=== PATIENT | male | born 1950 | race Caucasian/White ===

== ENCOUNTER 2016-04-04 17:53 | Inpatient (IN) | payer MEDICARE, OTHER ==
[~2016-04-04] VITALS: Ht 170.2 cm; Wt 53.5 kg
[~2016-04-04 17:53] MED LIST: ASPI81TA7 PO; ATOR1TAB18 PO; BACI50OI TOP; CLOP75TA2 PO; DELT1TAB PO; FERR325T PO; FLUO40CA PO; GABA300C3 PO; LAMO150T PO; LEVA500T PO; MELA5TAB14 PO; METO-346 PO; MIRA33504 PO; NITR4TASL SL; OMEP20CA3 PO; OXYC-517 PO; RAMI1.25 PO; RAMI25CA PO; SENN8.6T10 PO; TIZA2CAP3 PO; VITA-130 PO; VITMTA PO; WELLTAB40 PO
[2016-04-04 18:40] LABS: BASO # 0.1 K/mm3 (0.0-0.2); BASO % 1.2 % (0.0-1.0); EOS # 0.3 K/mm3 (0.0-0.50); EOS % 3.3 % (0.0-3.0); LARGE UNSTAINED CELL # 0.3 K/mm3 (0.0-0.4); LARGE UNSTAINED CELL % 2.8 % (0.0-4.0); LYMPH # 2.8 K/mm3 (1.5-4.5); LYMPH % 24.9 % (24.0-44.0); MEAN CORPUSCULAR HEMOGLOBIN 30.1 pg (27.0-33.0); MEAN CORPUSCULAR HGB CONC 32.4 g/dl (32.0-36.5); MEAN CORPUSCULAR VOLUME 93.1 fl (80.0-96.0); MONO # 0.5 K/mm3 (0.0-0.8); MONO % 4.6 % (0.0-5.0); NEUTROPHILS # 6.4 K/mm3 (1.8-7.7); NEUTROPHILS % 63.3 % (36.0-66.0); PLATELET COUNT, AUTOMATED 379 k/mm3 (150-450); RED CELL DISTRIBUTION WIDTH 16.2 % (11.5-14.5); WHITE BLOOD COUNT 10.2 K/mm3 (4.0-10.0)
[2016-04-04 18:49] LABS: ALBUMIN 3.3 GM/DL (3.2-5.2); ALBUMIN/GLOBULIN RATIO 0.94 (1.00-1.93); ALKALINE PHOSPHATASE 124 U/L (45-117); ALT/SGPT 16 U/L (12-78); ANION GAP 9 MEQ/L (8-16); AST/SGOT 11 U/L (15-37); BILIRUBIN,DIRECT < 0.1 MG/DL (0.0-0.2); BILIRUBIN,TOTAL 0.3 MG/DL (0.2-1.0); BLOOD UREA NITROGEN 24 MG/DL (7-18); CALCIUM LEVEL 9.4 MG/DL (8.8-10.2); CARBON DIOXIDE LEVEL 27 MEQ/L (21-32); CHLORIDE LEVEL 103 MEQ/L (98-107); CREATININE FOR GFR 1.18 MG/DL (0.70-1.30); GLOMERULAR FILTRATION RATE > 60.0 (>49); GLUCOSE, FASTING 87 MG/DL (80-110); POTASSIUM SERUM 4.6 MEQ/L (3.5-5.1); SODIUM LEVEL 139 MEQ/L (136-145); TOTAL PROTEIN 6.8 GM/DL (6.4-8.2)
[2016-04-04] MEDS ORDERED: ONDANSETRON 4MG/2ML VIAL (J2405) IV PRN (19:30)
[2016-04-04] MEDS ORDERED: PERCOCET 5MG/325MG TAB As Ordered ONE (19:35)
[2016-04-04 19:55] LABS: FERRITIN 45 NG/ML (26-388); PERCENT SATURATION 33.8 % (19.7-37.4); TOTAL IRON BINDING CAPACITY 314 UG/DL (250-450)
[2016-04-04] MEDS ORDERED: CLOP75TA2 PO (20:00)
[2016-04-04] MEDS ORDERED: DONE5TAB17 PO (20:00)
[2016-04-04] MEDS ORDERED: SENN8.6T10 PO (20:00)
[2016-04-04] MEDS ORDERED: ALPR1TAB3 PO (20:00)
[2016-04-04] MEDS ORDERED: RAMI25CA PO (20:00)
[2016-04-04] MEDS ORDERED: PANTOPRAZOLE 40MG INJ (PROTONIX) (C9113) IV SCH (21:00)
[2016-04-04] MEDS ORDERED: IPRATROPIUM 0.5MG/ALBUTEROL 2.5MG INH SOL UD 3ML (DUONEB)(J7620) NEB PRN (21:00)
[2016-04-04 21:29] LABS: FOLATE 16.2 NG/ML (>5.4)
[2016-04-04 21:30] LABS: VITAMIN B12 LEVEL 434 PG/ML (247-911)
--- NOTE | 2016-04-04 21:53 | HPE ---
DATE OF ADMISSION: 04/04/2016 PRIMARY CARE PROVIDER: GHULAM Peters. CHIEF COMPLAINT: 1. Shortness of breath. 2. Weakness. 3. Tiredness. 4. Vomiting. PAST MEDICAL HISTORY: 1. Coronary artery disease status post stenting. 2. Chronic anemia. 3. Depression with history of suicidal ideas in the past. 4. History of cardiomyopathy with EF of 35% in the past but most recent echocardiogram shows normal ejection fraction. Has grade 2 diastolic dysfunction. 5. Dementia. 6. History of hypertension but right now hypotensive. 7. History of hematuria bladder diverticulum. 8. Difficulty in ambulation with unequal limbs. 9. Gastroesophageal reflux disease. 10. Chronic obstructive pulmonary disease and emphysema as per CT chest. Not on any medications. HISTORY OF PRESENT ILLNESS: This is a 66-year-old male who had a recent hospitalization in February and was discharged March 22. At that time he was hospitalized for community acquired pneumonia and chronic obstructive pulmonary disease exacerbation. During this hospitalization some of his blood pressure medications were adjusted and after returning home he went to his primary care and was found to have low blood pressure so his metoprolol was discontinued. Yesterday evening patient started vomiting, had several episodes of vomiting with some crampy abdominal pain which resolved by itself and he went to bed. However this morning again woke up and had two or three episodes of vomiting without any nausea. Subsequently he felt extremely shortness of breath while ambulating within the room. Patient felt that even after 5 feet of ambulation he could hardly take any breath and he was almost gaping so EMS was called for shortness of breath. On arrival EMS found the patient to be hypotensive with blood pressure of 86/57 and the patient was brought to the emergency room for evaluation in the emergency department (ED). On initial presentation blood pressure was 100/64, pulse was 109, respiratory rate 26, temperature 95.9, pulse oximetry 96% on room air. Patient was given one liter of IV fluid. After that he felt a little better. However patient still continued to complain of shortness of breath and extreme weakness so the hospitalist service was consulted for admission for evaluation. On my exam the patient complained of still feeling shortness of breath and extremely weak and tired. He also complained of sacral pain. He denied any nausea or vomiting. Denied any abdominal pain. Denied any chest pain. Denied any cough of phlegm. He did not have any fevers or chills at home. He does say that he has some intermittent hematuria but then it clears by itself. Patient does have an appointment to follow with Dr. Ashford in our urology clinic. The patient is admitted to the hospital for hypotension and dehydration. PAST SURGICAL HISTORY: 1. Pelvic fracture and surgery in August 2015. 2. Coronary artery stenting. ALLERGIES: No known allergies. SOCIAL HISTORY: Patient was a smoker one to two packs per day however quit smoking in October 2015. Used to drink alcohol, beer but has not drank for many years. Denies any recreational drug use. HOME MEDICATIONS: - aspirin 81 mg daily - clopidogrel 75 mg daily - atorvastatin 80 mg at bed time - ferrous sulfate 325 mg by mouth daily - vitamin B 500 mg by mouth daily - alprazolam 1 mg by mouth twice a day as needed anxiety - bupropion 300 mg by mouth daily - fluoxetine 40 mg by mouth daily - lamotrigine 300 mg at bed time - gabapentin 300 mg three times a day - melatonin 5 mg at bed time - donepezil 5 mg at bed time - multivitamin 1 tablet daily - nitroglycerin 0.4 mg sublingual as needed chest pain - omeprazole 20 mg daily - oxycodone 10 mg four times a day as needed pain - ramipril 2.5 mg by mouth daily - Senna two tablets at bed time REVIEW OF SYSTEMS: Patient denies any complaints other than those mentioned in history of present illness. PHYSICAL EXAMINATION: Vital signs: Blood pressure 117/67, pulse 90, respiratory rate 20, temperature 95.9, pulse oximetry 100% on room air. GENERAL: Patient awake, alert and oriented times three. Laying down in bed in no acute distress. HEENT: Normocephalic, atraumatic. Moist mucous membranes. Anicteric eyes. CHEST: Clear to auscultation. CARDIOVASCULAR: S1, S2, regular. No rub, murmur, or gallop. ABDOMEN: Soft, non-tender, bowel sounds present. There is hepatomegaly present. EXTREMITIES: No edema. BACK: There is Stage 1 to 2 sacral antecubital ulcer present. LABORATORY DATA: WBC 10.2, hemoglobin 9, platelet 379, sodium 139, potassium 4.6, chloride 103, bicarbonate 27, BUN 24, creatinine 1.1, iron 106, <<11:50>> saturation 33, <<11:52>> . Liver function tests are within normal limits. Lipase 58. IMAGING: Chest x-ray no acute abnormality detected. ASSESSMENT AND PLAN: This is a 66-year-old male admitted for hypotension and dehydration. PLAN: Hypotension possibly related to medications and poor oral intake along with several episodes of vomiting causing dehydration. We will hold ramipril at present. Patient responded to fluid with improvement in blood pressure. We will check orthostatics. Dehydration due to several episodes of vomiting. Unknown etiology of vomiting. We will treat for gastroesophageal reflux disease and gastritis. We will continue with pantoprazole and <<13:57>> . History of depression. Patient denies suicidal ideation at present. We will continue with home antidepressant medications. Coronary artery disease status post stenting in 2016 with history of low ejection fraction at that point of 35-40%. We will continue with aspirin, Plavix and atorvastatin however we will reduced atorvastatin dose from 80 to 40 mg a day in view of his very small stature and rescind history of transaminitis. History of cardiomyopathy which has now resolved as seen in recent echo done in February 2016 which shows an EF of 65-70% though has grade 1 diastolic systolic function. Chronic obstructive pulmonary disease. Not in any acute exacerbation at this point. We will place the patient on albuterol or on ipratropium as needed nebulizer. Gait instability. Patient had pelvic fracture in 2016 and after screw and external fixation his pelvis is tilted with one leg shorter than the other which causes difficulty with walking. Sacral decubitus ulcer. Still needs Optifoam dressing and frequent position change. For pain we will continue with oxycodone as needed. Deep vein thrombosis prophylaxis has been ordered. Chronic anemia. Patient did have low folic acid prior to admission. We will recheck iron and folic acid and vitamin B12 levels. Also check for fecal occult blood. We will continue with Vitamin C and iron at present. History of hematuria. Patient has been set up with urology appointment as an outpatient during the prior admission. We will get bladder scan.
--- NOTE | 2016-04-04 22:16 | EDDOCDS ---
Physician Documentation [facility] Name: Jorge Valle Age: 66 yrs Sex: Male : 1950 Arrival Date: 04/04/2016 Time: 17:53 Bed 7 Private MD: Disposition: 04/04 19:16 Critical Care: Critical care not applicable. pc Disposition: 04/04/16 19:18 Hospitalization ordered by Marcelina Bustillos for Inpatient Admission. Preliminary diagnosis are Dehydration, Weakness, Unspecified dementia, Adjustment disorder with depressed mood. - Bed requested for 4 [place]. - Status is Inpatient Admission. cf2 - Condition is Stable. - Problem is new. - Symptoms are unchanged. HPI: 18:26 This 66 yrs old Male presents to ER via Ambulance with complaints of Weakness.pc 18:26 The history is obtained from the patient, the patient's family/friend. A reliable pc history and/or examination was not able to be obtained, due to baseline dementia. He developed nausea and vomiting last evening that resolved after a few hours. He went ot bed and awoke feeling like he might get sick again. He sat up and felt lightheaded and too weak to stand. He vomited two more times and none since. He has felt weak all day and his daughter called for EMS tonight because he is too weak to stand. He denies any abdomina pain or nausea currently, denies any chest pain or headaches. He has been having low BPs since an admission to [facility] 3 weeks ago, for reported pneumonia with normal CXR and sputum. His records are not consistent, with his ramipril not listed as an admission drug but noted as doubled on discharge; his metoprolol dose was halved from 125. mg BID but is now not on any. 18:37 The patient has been recently seen by their primary care provider, yesterday. pc Historical: - Allergies: no known allergies; - Home Meds: 1. oxycodone 5 mg Oral tab 2 tabs every 6 hours (Last dose: 04/03/2016) 2. omeprazole 20 mg Oral cpDR 1 cap once daily (Last dose: 04/03/2016) 3. atorvastatin 80 mg oral tab 1 tab once daily (Last dose: 04/03/2016) 4. bupropion HCl 150 mg Oral TbER 1 tab once daily (Last dose: 04/03/2016) 5. lamotrigine 150 mg Oral tab 1 tab once daily (Last dose: Unknown) 6. ferrous sulfate 325 mg (65 mg iron) Oral cpER 325 mg daily (Last dose: 04/03/2016) 7. aspirin 81 mg Oral tab 1 tab once daily (Last dose: 04/03/2016) 8. gabapentin 300 mg Oral cap 1 cap 3 times per day (Last dose: 04/03/2016) 9. fluoxetine 40 mg Oral cap 1 cap once daily (Last dose: 04/03/2016) 10. ramipril 2.5 mg Oral cap 1 cap 2 times per day (Last dose: 04/03/2016) 11. Senna Lax 8.6 mg oral tab 2 tabs once daily (Last dose: 04/03/2016) 12. multivitamin Oral tab 1 tablet daily (Last dose: 04/03/2016) 13. melatonin 5 mg Oral cap 5 mg nightly (Last dose: 04/03/2016) 14. Nitrostat 0.4 mg SL subl 1 tab every 5 minutes as needed 15. Miralax 17 gram/dose Oral powd daily as needed - PMHx: Anxiety; CAD; Depression; GERD; High Cholesterol; pelvic fracture; Pneumonia; [place]; - PSHx: pelvic surgery; Cardiac stents; - The history from nurses notes was reviewed: and I agree with what is documented. - Social history: Smoking status: Patient uses tobacco products, light tobacco smoker. No barriers to communication noted, The patient speaks fluent Czech, Speaks appropriately for age. - : The pt / caregiver states he / she is not on anticoagulants. Home medication list is obtained from the patient, family members, a discharge med list, Differing med lists from pt, family members, discharge med list and admission med list. Provider aware. - Exposure Risk Screening:: None identified. - Immunization history:: All immunizations up-to-date. - Family history: Not pertinent. - Social history:: the patient smokes cigarettes the patient does not drink alcohol. ROS: 18:37 All systems are negative except as listed. pc Exam: 18:37 General Appearance: no acute distress, alert. pc 18:37 EENT: normal eye inspection, ears, nose and throat normal, mucous membranes dry. 18:37 Neck: The exam reveals no acute abnormalities. ROM is normal and painless. No nuchal rigidity is noted.. 18:37 Respiratory: no respiratory distress, Breath sounds: wheezing, scattered. 18:37 CVS: regular rhythm, normal S1 and S2, no murmurs, strong peripheral pulses, normal capillary refill, the patient is tachycardic, at 109 bpm. 18:37 Abdomen: soft, non-tender, no organomegaly, normal bowel sounds. 18:37 Back: normal inspection. 18:37 Skin: skin color is normal, warm, dry, the skin turgor is poor. 18:37 Extremities: The extremities have a grossly normal appearance, are non-tender, without acute ROM abnormalities. 18:37 Neuro: oriented x 3, cranial nerves normal as tested, no motor deficits, no sensory deficits. 18:37 Psych: mood is depressed, affect is flat. Vital Signs: 18:01 Pulse 109; Temp 95.9(O); ls3 18:14 BP 100 / 64; Resp 26; Pulse Ox 96% on R/A; Weight 52.62 kg / 116.01 lbs; Height 5 ft. 7 ls3 in. (170.18 cm); Pain 8/10; 18:38 BP 130 / 58 (auto/); ld5 18:38 Pulse 100 MON; Pulse Ox 100% ; ld5 19:23 BP 137 / 55 (auto/); cf2 19:23 Pulse 94 MON; Pulse Ox 98% ; cf2 19:53 Pulse 90 MON; Pulse Ox 98% ; cf2 19:53 BP 109 / 55 (auto/); cf2 20:23 Pulse 88 MON; Pulse Ox 100% ; cf2 20:23 BP 134 / 60 (auto/); cf2 20:38 BP 117 / 59 (auto/); cf2 20:38 Pulse 88 MON; Pulse Ox 100% ; cf2 21:21 Pulse 88 MON; cf2 21:23 BP 98 / 50 (auto/); cf2 21:38 BP 115 / 58 (auto/); cf2 21:43 Pulse 88 MON; Pulse Ox 97% ; cf2 18:14 Body Mass Index 18.17 (52.62 kg, 170.18 cm) ls3 MDM: 18:26 IV Saline Lock ordered. pc 18:27 CBC with Diff Ordered. EDMS 18:27 MED Profile Ordered. EDMS 18:27 Liver Profile Ordered. EDMS 18:28 Lipase Ordered. EDMS 18:37 Differential Diagnosis: weakness, nausea and vomiting resolved, hypotension resolved. pc Plan: labs. 18:55 CBC with Diff Reviewed. pc 18:55 MED Profile Reviewed. pc 18:55 Liver Profile Reviewed. pc 18:55 Lipase Reviewed. pc 18:57 NS 0.9% 1000 ml IV at bolus once ordered. pc 18:57 Rubber Flap Cutter/Pulse Ox/q 30 min VS ordered. pc 18:58 Chest, 1 View Ordered. EDMS 19:16 Data reviewed: old medical records, vital signs, nurses notes, lab test results. Test pc interpretation: LAB - all labs as ordered have been reviewed, interpreted and considered in the overall management of the clinical presentation;. The patient has been re-examined and re-evaluated. There is no appreciated change of the patient's symptoms at this time. Physician consultation: Dr. Marcelina Bustillos was contacted at 19:17, regarding admission, and will see patient in ED. Disposition: The historical points, examination findings, and any diagnostic results supporting the provided diagnosis, were discussed with the patient or legal guardian. The need for further work-up and/or treatment in the hospital was explained. 19:18 Financial registration complete. [email or web address] 19:19 BED REQUEST+ADM ordered. EDMS 19:20 [facility] Payment Agreement was scanned into redealize and attached to record. [email or web address] 19:34 CBC WITH DIFFERENTIAL Ordered. EDMS 19:34 BASIC METABOLIC PROFILE Ordered. EDMS 19:35 Admission / Observation Status ordered. EDMS 19:35 REGULAR DIET ordered. EDMS 19:44 oxyCODONE-acetaminophen 5 mg-325 mg 2 tabs PO once ordered. cf2 20:56 PHYSICAL THERAPY EVAL & TREAT ordered. EDMS 21:50 CARDIAC MARKER PANEL Ordered. EDMS Administered Medications: 19:44 Drug: NS 0.9% 1000 ml [sodium chloride 0.9 % intravenous solution] Route: IV; Rate: cf2 bolus; Site: left antecubital; 19:44 Drug: oxyCODONE-acetaminophen 2 tabs [oxycodone-acetaminophen 5 mg-325 mg tablet (2 cf2 tabs)] Route: PO; 20:49 Follow up: Response: No significant change. cf2 Signatures: Dispatcher [employer] EDMS Solo Carpio MD MD pc Lopresti, Mary-Elizabeth, Bending Roll Hand Unit ml3 Katelynn ShethRN RN ld5 Yue Larkin, Reg Reg [email or web address] Genie Chaparro,RN RN cf2 The chart was reviewed and I authenticate all verbal orders and agree with the evaluation and treatment provided.Corrections: (The following items were deleted from the chart) 18:40 18:26 He developed nausea and vomiting last evening that resolved after a few hours. He pc went ot bed and awoke feeling like he might get sick again. He sat up and felt lightheaded and too weak to stand. He vomited two more times and none since. He has felt weak all day and his daughter called for EMS tonight because he is too weak to stand. He has been having low BPs since an admission to [facility] 3 weeks ago, for reported pneumonia with normal CXR and sputum. His records are not consistent, with his ramipril not listed as an admission drug but noted as doubled on discharge; his metoprolol dose was halved from 25mg BID pc 18:59 18:51 Home Meds: oxycodone 5 mg Oral tab 2 tabs every 6 hours as needed (Last Dose: ld5 04/03/2016); ld5 19:44 19:37 VITAMIN B12 LEVEL ordered. EDMS EDMS 19:44 19:37 FOLATE ordered. EDMS EDMS 19:44 19:37 IRON (FE) ordered. EDMS EDMS 19:44 19:37 FERRITIN ordered. EDMS EDMS 19:44 19:38 TOTAL IRON BINDING CAPACIT ordered. EDMS EDMS 20:15 18:57 Orthostatic VS ordered. cf2 21:49 21:43 CARDIAC MARKER PANEL ordered. EDMS EDMS Attachments: 19:20 [facility] Payment Agreement [email or web address]
--- NOTE | 2016-04-04 22:16 | EDDOCDS ---
Nurse's Notes [facility] Name: Jorge Valle Age: 66 yrs Sex: Male : 1950 Arrival Date: 04/04/2016 Time: 17:53 Bed 7 Private MD: Diagnosis: Dehydration;Weakness;Unspecified dementia;Adjustment disorder with depressed mood Presentation: 04/04 18:00 Presenting complaint: EMS states: Initial call was for shortness of breath. Upon EMS ld5 arrival, BP was 86/57. Fluids given en route. Recent admission to [facility] for pneumonia. Pt had an episode of vomiting last night and again this morning. Denies nausea. The last date and time the patient was known to be well was was at 16:00 on April 03, 2016. No acute neurological deficit is noted. Transition of care: patient was not received from another setting of care. 18:00 Acuity: JOHAN Level 3 ld5 18:00 Method Of Arrival: Ambulance ld5 18:00 Pre-hospital glucose is not applicable to this patient. Suicide/Homicide risk ld5 assessment- the patient denies having any suicidal and/or homicidal ideations and does not present with any other emotional, behavioral or mental health complaints. 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 18:12 Adult Sepsis Screening: The patient does not have new or worsening altered mentation. ld5 Patient's respiratory rate is less than 22. Systolic blood pressure is less than or equal to 100 (1 point). Patient has a qSOFA score of 1- Negative Sepsis Screen. Triage Assessment: 18:19 The onset of the patients symptoms was more than three hours ago. General: Appears ill, ld5 Behavior is cooperative. Pain: Denies pain. Neurological: Level of Consciousness is awake, alert, obeys commands. Respiratory: Airway is patent Respiratory effort is even, labored, Reports shortness of breath at rest on exertion. GI: Reports vomiting, "out of nowhere", decreased oral intake Denies nausea. Musculoskeletal: Reports "I can't stay up straight", pt reports "I'm not dizzy or lightheaded". Historical: - Allergies: no known allergies; - Home Meds: 1. oxycodone 5 mg Oral tab 2 tabs every 6 hours (Last dose: 04/03/2016) 2. omeprazole 20 mg Oral cpDR 1 cap once daily (Last dose: 04/03/2016) 3. atorvastatin 80 mg oral tab 1 tab once daily (Last dose: 04/03/2016) 4. bupropion HCl 150 mg Oral TbER 1 tab once daily (Last dose: 04/03/2016) 5. lamotrigine 150 mg Oral tab 1 tab once daily (Last dose: Unknown) 6. ferrous sulfate 325 mg (65 mg iron) Oral cpER 325 mg daily (Last dose: 04/03/2016) 7. aspirin 81 mg Oral tab 1 tab once daily (Last dose: 04/03/2016) 8. gabapentin 300 mg Oral cap 1 cap 3 times per day (Last dose: 04/03/2016) 9. fluoxetine 40 mg Oral cap 1 cap once daily (Last dose: 04/03/2016) 10. ramipril 2.5 mg Oral cap 1 cap 2 times per day (Last dose: 04/03/2016) 11. Senna Lax 8.6 mg oral tab 2 tabs once daily (Last dose: 04/03/2016) 12. multivitamin Oral tab 1 tablet daily (Last dose: 04/03/2016) 13. melatonin 5 mg Oral cap 5 mg nightly (Last dose: 04/03/2016) 14. Nitrostat 0.4 mg SL subl 1 tab every 5 minutes as needed 15. Miralax 17 gram/dose Oral powd daily as needed - PMHx: Anxiety; CAD; Depression; GERD; High Cholesterol; pelvic fracture; Pneumonia; NV; - PSHx: pelvic surgery; Cardiac stents; - The history from nurses notes was reviewed: and I agree with what is documented. - Social history: Smoking status: Patient uses tobacco products, light tobacco smoker. No barriers to communication noted, The patient speaks fluent [place]er, Speaks appropriately for age. - : The pt / caregiver states he / she is not on anticoagulants. Home medication list is obtained from the patient, family members, a discharge med list, Differing med lists from pt, family members, discharge med list and admission med list. Provider aware. - Exposure Risk Screening:: None identified. - Immunization history:: All immunizations up-to-date. - Family history: Not pertinent. - Social history:: the patient smokes cigarettes the patient does not drink alcohol. Screenin:53 Screening information is obtained from the patient. Fall risk: At risk due to age, gait cf2 disturbance, immobility, prior history of falls. Assistance ADL's: Requires assistance with. Abuse/DV Screen: The patient / caregiver reports he/she is: not in a situation that causes fear, pain or injury. Nutritional screening: No deficits noted. Advance Directives: Further advance directive information is declined. home support is adequate. Assessment: 18:59 General: Daughter out to request pain medication for pt. Provider made aware. No new ld5 orders at this time. Will continue to monitor. 21:53 Reassessment: Patient appears in no apparent distress at this time. Patient denies pain cf2 at this time. Patient states feeling better. Adult Sepsis Screening: The patient does not have new or worsening altered mentation. Patient's respiratory rate is less than 22. Systolic blood pressure is greater than 100. Patient has a qSOFA score of 0- Negative Sepsis Screen. Vital Signs: 18:01 Pulse 109; Temp 95.9(O); ls3 18:14 BP 100 / 64; Resp 26; Pulse Ox 96% on R/A; Weight 52.62 kg; Height 5 ft. 7 in. (170.18 ls3 cm); Pain 8/10; 18:38 BP 130 / 58 (auto/); ld5 18:38 Pulse 100 MON; Pulse Ox 100% ; ld5 19:23 BP 137 / 55 (auto/); cf2 19:23 Pulse 94 MON; Pulse Ox 98% ; cf2 19:53 Pulse 90 MON; Pulse Ox 98% ; cf2 19:53 BP 109 / 55 (auto/); cf2 20:23 Pulse 88 MON; Pulse Ox 100% ; cf2 20:23 BP 134 / 60 (auto/); cf2 20:38 BP 117 / 59 (auto/); cf2 20:38 Pulse 88 MON; Pulse Ox 100% ; cf2 21:21 Pulse 88 MON; cf2 21:23 BP 98 / 50 (auto/); cf2 21:38 BP 115 / 58 (auto/); cf2 21:43 Pulse 88 MON; Pulse Ox 97% ; cf2 18:14 Body Mass Index 18.17 (52.62 kg, 170.18 cm) ls3 Vitals: 21:55 Glucose Measurement intriage. Log In Time N/A - ambulance arrival. cf2 ED Course: 17:54 Patient visited by Sana Sue, Hydrology Technician. deg 17:54 Patient moved to Waiting deg 17:54 Patient moved to 7 deg 18:05 Solo Carpio MD is Attending Physician. pc 18:06 Triage Initiated ld5 18:15 Patient visited by Alize Heath PCA. ls3 18:22 Patient visited by Solo Carpio MD. pc 18:27 Maintain field IV. Good blood return noted. Site clean & dry. Gauge & site: 20g right ld5 AC. 19:00 Patient visited by Katelynn Sheth RN. ld5 19:02 Patient visited by Alex Olivarez PCA. kb5 19:08 Genie Chaparro,MARGARITA is Primary Nurse. cf2 19:08 Patient visited by Genie Chaparro RN. cf2 19:17 Marcelina Bustillos is Hospitalizing Provider. pc 19:20 [facility] Payment Agreement was scanned into [employer] and attached to record. ks16 19:27 Patient name changed from Jorge\\S\\\\S\\Beadling\\S\\ to Jorge\\S\\ \\S\\Beadling. EDMS 20:47 Patient visited by Genie Chaparro RN. cf2 20:49 Patient visited by Genie Chaparro,MARGARITA. cf2 21:53 Patient visited by Genie Chaparro,MARGARITA. cf2 21:53 The patient / caregiver is instructed regarding the plan of care and ED course. Patient cf2 has correct armband on for positive identification. Placed in gown. Bed in low position. Call light in reach. Side rails up X 1. Side rails up X2. awake overnight monitor on. Pulse ox on. NIBP on. Property :Personal belongings accompany Pt. Door closed. Noise minimized. Visitors limited. Lights dimmed. Moved to private room. Head of bed elevated. 21:53 No procedures done that require assistance. cf2 21:56 Patient visited by Alex Olivarez PCA. kb5 Administered Medications: 19:44 Drug: NS 0.9% 1000 ml [sodium chloride 0.9 % intravenous solution] Route: IV; Rate: cf2 bolus; Site: left antecubital; 19:44 Drug: oxyCODONE-acetaminophen 2 tabs [oxycodone-acetaminophen 5 mg-325 mg tablet (2 cf2 tabs)] Route: PO; 20:49 Follow up: Response: No significant change. cf2 Order Results: Lab Order: CBC with Diff; SPEC'M 04/04/16 18:06 Test: WHITE BLOOD COUNT; Value: 10.2; Range: 4.0-10.0; Abnormal: Above high normal; Units: K/mm3; Status: F Test: RED BLOOD COUNT; Value: 2.99; Range: 4.30-6.10; Abnormal: Below low normal; Units: M/mm3; Status: F Test: HEMOGLOBIN; Value: 9.0; Range: 14.0-18.0; Abnormal: Below low normal; Units: g/dl; Status: F Test: HEMATOCRIT; Value: 27.8; Range: 42.0-52.0; Abnormal: Below low normal; Units: %; Status: F Test: MEAN CORPUSCULAR VOLUME; Value: 93.1; Range: 80.0-96.0; Units: fl; Status: F Test: MEAN CORPUSCULAR HEMOGLOBIN; Value: 30.1; Range: 27.0-33.0; Units: pg; Status: F Test: MEAN CORPUSCULAR HGB CONC; Value: 32.4; Range: 32.0-36.5; Units: g/dl; Status: F Test: RED CELL DISTRIBUTION WIDTH; Value: 16.2; Range: 11.5-14.5; Abnormal: Above high normal; Units: %; Status: F Test: PLATELET COUNT, AUTOMATED; Value: 379; Range: 150-450; Units: k/mm3; Status: F Test: NEUTROPHILS %; Value: 63.3; Range: 36.0-66.0; Units: %; Status: F Test: LYMPH %; Value: 24.9; Range: 24.0-44.0; Units: %; Status: F Test: MONO %; Value: 4.6; Range: 0.0-5.0; Units: %; Status: F Test: EOS %; Value: 3.3; Range: 0.0-3.0; Abnormal: Above high normal; Units: %; Status: F Test: BASO %; Value: 1.2; Range: 0.0-1.0; Abnormal: Above high normal; Units: %; Status: F Test: LARGE UNSTAINED CELL %; Value: 2.8; Range: 0.0-4.0; Units: %; Status: F Test: NEUTROPHILS #; Value: 6.4; Range: 1.8-7.7; Units: K/mm3; Status: F Test: LYMPH #; Value: 2.8; Range: 1.5-4.5; Units: K/mm3; Status: F Test: MONO #; Value: 0.5; Range: 0.0-0.8; Units: K/mm3; Status: F Test: EOS #; Value: 0.3; Range: 0.0-0.50; Units: K/mm3; Status: F Test: BASO #; Value: 0.1; Range: 0.0-0.2; Units: K/mm3; Status: F Test: LARGE UNSTAINED CELL #; Value: 0.3; Range: 0.0-0.4; Units: K/mm3; Status: F Lab Order: MED Profile; [facility] 04/04/16 18:06 Test: GLUCOSE, FASTING; Value: 87; Range: 80-110; Units: MG/DL; Status: F Test: BLOOD UREA NITROGEN; Value: 24; Range: 7-18; Abnormal: Above high normal; Units: MG/DL; Status: F Test: CREATININE FOR GFR; Value: 1.18; Range: 0.70-1.30; Units: MG/DL; Status: F Test: GLOMERULAR FILTRATION RATE; Value: > 60.0; Range: >49; Status: F Test: SODIUM LEVEL; Value: 139; Range: 136-145; Units: MEQ/L; Status: F Test: POTASSIUM SERUM; Value: 4.6; Range: 3.5-5.1; Units: MEQ/L; Status: F Test: CHLORIDE LEVEL; Value: 103; Range: 98-107; Units: MEQ/L; Status: F Test: CARBON DIOXIDE LEVEL; Value: 27; Range: 21-32; Units: MEQ/L; Status: F Test: ANION GAP; Value: 9; Range: 8-16; Units: MEQ/L; Status: F Test: CALCIUM LEVEL; Value: 9.4; Range: 8.8-10.2; Units: MG/DL; Status: F Test Note: ; Units are mL/min/1.73 m2 Chronic Kidney Disease Staging per NKF: Stage I & II GFR >=60 Normal to Mildly Decreased Stage III GFR 30-59 Moderately Decreased Stage IV GFR 15-29 Severely Decreased Stage V GFR <15 Very Little GFR Left ESRD GFR <15 on POWER TRANSMISSION ENGINEER Test: CPK CREATINE PHOSPHOKINASE; Range: 39-308; Units: U/L; Status: I Test: CK-MB VALUE MASS; Range: 0.0-3.6; Units: NG/ML; Status: I Test: MB/CK RELATIVE INDEX; Range: < OR =4; Status: I Test: TROPONIN I; Range: < 0.10; Units: NG/ML; Status: I Lab Order: Liver Profile; 04/04/16 18:06 Test: AST/SGOT; Value: 11; Range: 15-37; Abnormal: Below low normal; Units: U/L; Status: F Test: ALT/SGPT; Value: 16; Range: 12-78; Units: U/L; Status: F Test: ALKALINE PHOSPHATASE; Value: 124; Range: 45-117; Abnormal: Above high normal; Units: U/L; Status: F Test: BILIRUBIN,TOTAL; Value: 0.3; Range: 0.2-1.0; Units: MG/DL; Status: F Test: BILIRUBIN,DIRECT; Value: < 0.1; Range: 0.0-0.2; Units: MG/DL; Status: F Test: TOTAL PROTEIN; Value: 6.8; Range: 6.4-8.2; Units: GM/DL; Status: F Test: ALBUMIN; Value: 3.3; Range: 3.2-5.2; Units: GM/DL; Status: F Test: ALBUMIN/GLOBULIN RATIO; Value: 0.94; Range: 1.00-1.93; Abnormal: Below low normal; Status: F Lab Order: Lipase; 04/04/16 18:06 Test: LIPASE; Value: 58; Range: 73-393; Abnormal: Below low normal; Units: U/L; Status: F Lab Order: TOTAL IRON BINDING CAPACIT; 04/04/16 18:06 Test: IRON (FE); Value: 106; Range: 65-175; Units: UG/DL; Status: F Test: TOTAL IRON BINDING CAPACITY; Value: 314; Range: 250-450; Units: UG/DL; Status: F Test: PERCENT SATURATION; Value: 33.8; Range: 19.7-37.4; Units: %; Status: F Lab Order: VITAMIN B12 LEVEL; SPEC'M 04/04/16 18:06 Test: VITAMIN B12 LEVEL; Value: 434; Range: 247-911; Units: PG/ML; Status: F Test Note: ; VITAMIN B12 NORMAL RANGE NORMAL 247 - 911 PG/ML INDETERMINATE 211 - 246 PG/ML DEFICIENT LESS THAN 211 PG/ML Lab Order: FOLATE; SPEC'M 04/04/16 18:06 Test: FOLATE; Value: 16.2; Range: >5.4; Units: NG/ML; Status: F Test Note: ; FOLATE NORMAL RANGE NORMAL GREATER THAN 5.4 NG/ML INDETERMINATE 3.4-5.4 NG/ML DEFICIENT LESS THAN 3.4 NG/ML Lab Order: FERRITIN; SPEC'M 04/04/16 18:06 Test: FERRITIN; Value: 45; Range: 26-388; Units: NG/ML; Status: F Outcome: 19:18 Decision to Hospitalize by Provider. pc 21:53 Discharge Assessment: Patient awake, alert and oriented x 3. No cognitive and/or cf2 functional deficits noted. Patient verbalized understanding of disposition instructions. Patient awake and alert. Oriented to person, place and time. patient administered narcotics - yes. Patient was admitted to the hospital or transferred to another facility. The following High Risk Discharge criteria are identified: None. Condition: stable. No special radiology studies were completed. 22:15 Patient left the ED. cf2 Signatures: Dispatcher [employer] EDMS Solo Carpio MD MD pc Murray, Denise, Hydrology Technician Unit deg Alex Olivarez, ROAD SUPERVISOR OF ENGINES ROAD SUPERVISOR OF ENGINES kb5 Katelynn Sheth,RN RN ld5 Alize Heath, ROAD SUPERVISOR OF ENGINES ROAD SUPERVISOR OF ENGINES ls3 Yue Larkin, Reg Reg ks16 Genie Chaparro RN RN cf2 Corrections: (The following items were deleted from the chart) 18:59 18:51 Home Meds: oxycodone 5 mg Oral tab 2 tabs every 6 hours as needed (Last Dose: ld5 04/03/2016); ld5 MTDD
[2016-04-04] MEDS: DONEPEZIL 5 MG TAB PO SCH (22:47)
[2016-04-04] MEDS: GABAPENTIN 300 MG CAP PO SCH (22:47)
[2016-04-04] MEDS: FLUoxetine 20 MG CAP PO SCH (22:47)
[2016-04-04] MEDS: ATORVASTATIN 20 MG TAB PO SCH (22:47)
[2016-04-04] MEDS: SENOKOT S TAB PO SCH (22:47)
[2016-04-04] MEDS: NS 1,000 ML IV SCH (22:48)
[2016-04-05] VITALS: BP_SYST 107; BP_SYST 114; BP_SYST 116; BP_DIAS 55; BP_DIAS 56; BP_DIAS 63
[2016-04-05] MEDS: oxyCODONE 5MG TAB PO PRN ×4 (01:10→21:04)
[2016-04-05 06:00] VITALS: BP 104/55
[2016-04-05 07:43] LABS: BASO % 0.2 % (0.0-1.0); EOS # 0.3 K/mm3 (0.0-0.50); EOS % 4.9 % (0.0-3.0); LARGE UNSTAINED CELL # 0.2 K/mm3 (0.0-0.4); LARGE UNSTAINED CELL % 3.4 % (0.0-4.0); LYMPH # 1.8 K/mm3 (1.5-4.5); LYMPH % 29.2 % (24.0-44.0); MEAN CORPUSCULAR HEMOGLOBIN 31.4 pg (27.0-33.0); MEAN CORPUSCULAR HGB CONC 32.9 g/dl (32.0-36.5); MEAN CORPUSCULAR VOLUME 95.5 fl (80.0-96.0); MONO # 0.3 K/mm3 (0.0-0.8); MONO % 4.9 % (0.0-5.0); NEUTROPHILS # 3.6 K/mm3 (1.8-7.7); NEUTROPHILS % 57.4 % (36.0-66.0); RED CELL DISTRIBUTION WIDTH 15.8 % (11.5-14.5); WHITE BLOOD COUNT 6.2 K/mm3 (4.0-10.0)
[2016-04-05 07:44] LABS: ANION GAP 7 MEQ/L (8-16); BLOOD UREA NITROGEN 26 MG/DL (7-18); CALCIUM LEVEL 8.1 MG/DL (8.8-10.2); CARBON DIOXIDE LEVEL 25 MEQ/L (21-32); CHLORIDE LEVEL 111 MEQ/L (98-107); CREATININE FOR GFR 1.03 MG/DL (0.70-1.30); GLOMERULAR FILTRATION RATE > 60.0 (>49); GLUCOSE, FASTING 82 MG/DL (80-110); POTASSIUM SERUM 4.7 MEQ/L (3.5-5.1); SODIUM LEVEL 143 MEQ/L (136-145)
--- NOTE | 2016-04-05 07:49 | REP ---
Clinical: Chest pain and weakness . Comparison: 03/18/2016 . Findings: The mediastinum and cardiac silhouette are stable and within normal limits for portable technique. The lung collazo demonstrate diffuse chronic changes without acute consolidation, effusion, or pneumothorax. Skeletal structures are intact. Impression: No acute cardiopulmonary process Signed by José Luis Mccrary MD 04/05/2016 07:39 A
[2016-04-05 07:53] LABS: PLATELET COUNT, AUTOMATED 238 k/mm3 (150-450)
[2016-04-05] MEDS: FERROUS SULFATE 325MG TAB PO SCH (08:19)
[2016-04-05] MEDS: GABAPENTIN 300 MG CAP PO SCH ×3 (08:19→21:03)
[2016-04-05] MEDS: buPROPion **XL** TABLET 150MG (WELLBUTRIN XL) PO SCH (08:19)
[2016-04-05] MEDS: MULTIVITAMINS/MINERALS THERAP 1 TAB PO SCH (08:19)
[2016-04-05] MEDS: SENOKOT S TAB PO SCH ×2 (08:19→21:03)
[2016-04-05] MEDS: ASCORBIC ACID 500 MG TAB PO SCH (08:19)
[2016-04-05] MEDS ORDERED: PANTOPRAZOLE 40MG INJ (PROTONIX) (C9113) IV SCH (09:00)
[2016-04-05] MEDS ORDERED: CLOPIDOGREL 75 MG TAB PO SCH (09:00)
[2016-04-05] MEDS ORDERED: ASPIRIN 81 MG ENTERIC TAB PO SCH (09:00)
[2016-04-05] MEDS ORDERED: ENOXAPARIN 40 MG/0.4 ML SYRINGE (J1650) SC SCH (09:00)
--- NOTE | 2016-04-05 09:21 | IPNPDOC ---
Assessment/Plan Date Seen The patient was seen on 04/05/16. Problems Problems: (1) Anemia Status: Acute Discussed With: Patient Problem Specific Plan: Consult Specialist, Monitor Clinically, Repeat Labs Problem Text: history of chronic anemia complicated with acute likely blood loss anemia serial h/h transfuse 2prbc gi consult - likely egd/colonoscopy iv protonix npo iv fluids (2) CAD (coronary artery disease) Status: Chronic Discussed With: Patient Problem Text: s/p pci hold plavix secondary to gi bleed (3) Depression Status: Chronic Discussed With: Patient Problem Specific Plan: Monitor Clinically Problem Text: continue prozac, wellbutrin (4) CHF (congestive heart failure) Status: Chronic Discussed With: Patient Problem Specific Plan: Monitor Clinically Problem Text: diastolic dysfunction (5) HTN (hypertension) Status: Chronic Discussed With: Patient Problem Text: has been hypotensive, hold home meds for now (6) GERD (gastroesophageal reflux disease) Status: Chronic Discussed With: Patient Problem Specific Plan: Monitor Clinically Problem Text: as per above iv ppi (7) Dyslipidemia Status: Chronic Plan / VTE VTE Prophylaxis Ordered?: Yes (mechanical) Plan IVF: Initiate Diet: Make NPO Medications: Change to IV Diagnostics: Repeat Labs in AM, Other Diagnostics Plan Text transfer to icu, protonix drip, transfuse prbc, npo, gi consultation, likely egd /colonoscopy Subjective Review of Systems CC/HPI The patient is a 66-year-old male admitted with a reason for visit of Dehydration, Nausea And Vomiting. General: Denies: Chills, Fatigue, Malaise, Night Sweats, Normal Appetite, Other Symptoms, ROS Unobtainable Constitutional: Denies: Chills, Fatigue, Fever, Lethargy, Malaise, Night Sweats , Other, Weakness, Weight Loss Eyes: Denies: Conjunctivae inflammation, Eyelid inflammation, Other, Pain, Redness, Vision change ENT: Denies: Dysphagia, Ear Pain, Epistaxis, Head Aches, Other Symptoms, Post Nasal Drip, Sinus Congestion, Sore Throat Skin: Denies: Breakdown, Bruising, Dry, Itching, Jaundice, Lesions, Nail Changes, Other, Rash Pulmonary: Denies: Cough, Dyspnea, Other Symptoms, Pleuritic Chest Pain Cardiovascular: Denies: Chest Pain, Edema, Lt Headedness, Orthopnea, Other Symptoms, Palpitations, Paroxysmal Noc. Dyspnea Gastrointestinal: Denies: Abdominal Pain, Constipation, Diarrhea, Hematochezia , Melena, Nausea, Other Symptoms, Vomiting Objective Physical Examination General Exam: Positive: Alert, Cooperative, No Acute Distress Eye Exam: Positive: PERRLA ENT Exam: Positive: Atraumatic Neck Exam: Positive: Supple Chest Exam: Positive: Clear to auscultation, Normal air movement Heart Exam: Positive: Rate Normal, Regular Rhythm Abdomen Exam: Positive: Normal bowel sounds, Soft, Negative: Tenderness Psych Exam: Positive: Oriented x 3 Vital Signs/I&O Vital Signs Date Time Temp Pulse Resp B/P Pulse Ox O2 Delivery O2 Flow Rate FiO2 04/05/16 08:21 20 04/05/16 06:00 97.6 80 104/55 97 Room Air I&O- Last 24 Hours up to 6 AM 04/05/16 05:59 Intake Total 75 ml Output Total 200 ml Balance -125 ml Laboratory Data Labs 24H Laboratory Tests 2 04/04/16 18:06: Aspartate Amino Transf (AST/SGOT) 11L, Alanine Aminotransferase (ALT/SGPT) 16, Alkaline Phosphatase 124H, Total Bilirubin 0.3, Direct Bilirubin < 0.1, Albumin 3.3, Albumin/Globulin Ratio 0.94L, Anion Gap 9, White Blood Count 10.2H, Red Blood Count 2.99L, Hemoglobin 9.0L, Hematocrit 27.8L, Mean Corpuscular Volume 93.1, Mean Corpuscular Hemoglobin 30.1, Mean Corpuscular Hemoglobin Concent 32.4 , Red Cell Distribution Width 16.2H, Platelet Count 379, Neutrophils (%) (Auto) 63.3, Lymphocytes (%) (Auto) 24.9, Monocytes (%) (Auto) 4.6, Eosinophils (%) ( Auto) 3.3H, Basophils (%) (Auto) 1.2H, Neutrophils # (Auto) 6.4, Lymphocytes # ( Auto) 2.8, Monocytes # (Auto) 0.5, Eosinophils # (Auto) 0.3, Basophils # (Auto) 0.1, Calcium Level 9.4, Creatine Kinase MB 1.0, Creatine Kinase MB Relative Index 3.84, Ferritin 45, Folate 16.2, Glomerular Filtration Rate > 60.0, Iron Level 106, Large Unclassified Cells # 0.3, Large Unclassified Cells % 2.8, Lipase 58L, Total Creatine Kinase 26L, Total Iron Binding Capacity 314, Total Protein 6.8, Transferrin % Saturation 33.8, Troponin I < 0.02, Vitamin B12 Level 434 04/05/16 07:11: Anion Gap 7L, White Blood Count 6.2, Red Blood Count 2.06L, Hemoglobin 6.5#*L, Hematocrit 19.6L, Mean Corpuscular Volume 95.5, Mean Corpuscular Hemoglobin 31.4 , Mean Corpuscular Hemoglobin Concent 32.9, Red Cell Distribution Width 15.8H, Platelet Count 238#, Neutrophils (%) (Auto) 57.4, Lymphocytes (%) (Auto) 29.2, Monocytes (%) (Auto) 4.9, Eosinophils (%) (Auto) 4.9H, Basophils (%) (Auto) 0.2 , Neutrophils # (Auto) 3.6, Lymphocytes # (Auto) 1.8, Monocytes # (Auto) 0.3, Eosinophils # (Auto) 0.3, Basophils # (Auto) 0.0, Calcium Level 8.1L, Glomerular Filtration Rate > 60.0, Large Unclassified Cells # 0.2, Large Unclassified Cells % 3.4, Blood Urea Nitrogen 26H, Creatinine 1.03, Sodium Level 143, Potassium Level 4.7, Chloride Level 111H, Carbon Dioxide Level 25 CBC/BMP Laboratory Tests 04/04/16 18:06 Red Blood Count 2.99 L, Mean Corpuscular Volume 93.1, Mean Corpuscular Hemoglobin 30.1, Mean Corpuscular Hemoglobin Concent 32.4, Red Cell Distribution Width 16.2 H, Neutrophils (%) (Auto) 63.3, Lymphocytes (%) (Auto) 24.9, Monocytes (%) (Auto) 4.6, Eosinophils (%) (Auto) 3.3 H, Basophils (%) ( Auto) 1.2 H, Neutrophils # (Auto) 6.4, Lymphocytes # (Auto) 2.8, Monocytes # ( Auto) 0.5, Eosinophils # (Auto) 0.3, Basophils # (Auto) 0.1 04/05/16 07:11 Red Blood Count 2.06 L, Mean Corpuscular Volume 95.5, Mean Corpuscular Hemoglobin 31.4, Mean Corpuscular Hemoglobin Concent 32.9, Red Cell Distribution Width 15.8 H, Neutrophils (%) (Auto) 57.4, Lymphocytes (%) (Auto) 29.2, Monocytes (%) (Auto) 4.9, Eosinophils (%) (Auto) 4.9 H, Basophils (%) ( Auto) 0.2, Neutrophils # (Auto) 3.6, Lymphocytes # (Auto) 1.8, Monocytes # (Auto ) 0.3, Eosinophils # (Auto) 0.3, Basophils # (Auto) 0.0, Calcium Level 8.1 L Microbiology Microbiology 04/05/16 Stool Occult Blood (ERROL) - Final, Complete KWAKU RAIN MD Apr 05, 2016 09:21
[2016-04-05] MEDS: PANTOPRAZOLE SODIUM 40 MG in D5W MINI-BAG PLUS 50 ML IV SCH ×2 (11:01→14:52)
[2016-04-05 14:00] VITALS: BP 130/61
[2016-04-05] MEDS: NS 1,000 ML IV SCH (16:36)
[2016-04-05] MEDS ORDERED: PROPOFOL 200 MG/20 ML VIAL As Ordered ONE (17:24)
[2016-04-05] MEDS ORDERED: LIDOCAINE 2% INJ 100 MG/5 ML SDV (FOR ANES.) As Ordered ONE (17:24)
[2016-04-05] MEDS: SUCRALFATE SUSP 1GM/10ML UD PO SCH ×2 (17:30→21:04)
[2016-04-05] MEDS ORDERED: LR 1,000 ML IV SCH (18:00)
[2016-04-05] MEDS ORDERED: NORCO, ANEXSIA 5/325MG TABLET (HYDROcodone/ACETAMINOPHEN) PO PRN (18:00)
[2016-04-05] MEDS ORDERED: ONDANSETRON 4MG/2ML VIAL (J2405) IV PRN (18:00)
--- NOTE | 2016-04-05 18:01 | ROOR ---
Patient Name: Jorge Valle Procedure Date: 04/05/2016 5:14 PM Date of : 1950 Age: 66 Room: Main OR Gender: Male Note Status: Finalized Procedure: Upper GI endoscopy + Biopsies Indications: Melena, Active gastrointestinal bleeding Providers: Primitivo Marie MD Referring MD: 2. Inpatient 2. Inpatient Requesting Provider: Medicines: Monitored Anesthesia Care Complications: No immediate complications. Procedure: Pre-Anesthesia Assessment: - The heart rate, respiratory rate, oxygen saturations, blood pressure, adequacy of pulmonary ventilation, and response to care were monitored throughout the procedure. The Endoscope was introduced through the mouth, and advanced to the second part of duodenum. The upper GI endoscopy was accomplished without difficulty. The patient tolerated the procedure well. Findings: The Z-line was variable and was found 40 cm from the incisors. Multiple biopsies were obtained with cold forceps for evaluation to rule out Garcia's Esophagus randomly at the gastroesophageal junction. A medium-sized hiatus hernia was present. Localized mild inflammation characterized by congestion (edema) and erythema was found in the cardia. Localized moderate inflammation characterized by congestion (edema), erosions and linear erosions was found in the duodenal bulb, in the first part of the duodenum and in the second part of the duodenum. The exam was otherwise without abnormality. Impression: - Z-line variable, 40 cm from the incisors. - Medium-sized hiatus hernia. - Acute gastritis. - Acute duodenitis. - The examination was otherwise normal. - Multiple biopsies were obtained at the gastroesophageal junction. Recommendation: - Return patient to hospital [facility] for ongoing care. - Continue present medications. - Await pathology results. - Telephone GI clinic for pathology results in 1 week. - The findings and recommendations were discussed with the referring physician. Primitivo Marie MD Primitivo Marie MD 04/05/2016 6:00:52 PM This report has been signed electronically. Number of Addenda: 0 Note Initiated On: 04/05/2016 5:14 PM Estimated Blood Loss: Estimated blood loss: none.
[2016-04-05 18:30] VITALS: BP 133/65
[2016-04-05 20:00] VITALS: BP 133/63
--- NOTE | 2016-04-05 20:36 | ECGEPIP ---
Stationary ECG Study [facility] Test Date: 2016-04-05 Pat Name: ARNAUD GAYLE Department: Room: [place] [address] Gender: M Construction Engineering Manager: WERNER : 1950 Requested By: Claudio Hooks Order Number: [id number] Reading MD: Anand Ba Measurements Intervals [place] Rate: 63 P: 73 NM: 159 QRS: 15 QRSD: 90 T: 66 QT: 411 QTc: 422 Interpretive Statements SINUS RHYTHM Comparison tracing not on file Electronically Signed On 04-05-2016 20:36:05 EST by Anand Ba
[2016-04-05] MEDS: FLUoxetine 20 MG CAP PO SCH (21:03)
[2016-04-05] MEDS: ATORVASTATIN 20 MG TAB PO SCH (21:03)
[2016-04-05] MEDS: PANTOPRAZOLE 40MG INJ (PROTONIX) (C9113) IV SCH (21:04)
[2016-04-05] MEDS: DONEPEZIL 5 MG TAB PO SCH (21:04)
[2016-04-05 23:59] VITALS: BP 132/64
[2016-04-06 04:00] VITALS: BP 122/59
[2016-04-06 05:29] LABS: BASO % 0.3 % (0.0-1.0); EOS # 0.4 K/mm3 (0.0-0.50); EOS % 6.7 % (0.0-3.0); LARGE UNSTAINED CELL # 0.2 K/mm3 (0.0-0.4); LARGE UNSTAINED CELL % 3.3 % (0.0-4.0); LYMPH # 1.9 K/mm3 (1.5-4.5); LYMPH % 26.5 % (24.0-44.0); MEAN CORPUSCULAR HEMOGLOBIN 29.5 pg (27.0-33.0); MEAN CORPUSCULAR HGB CONC 33.1 g/dl (32.0-36.5); MONO # 0.3 K/mm3 (0.0-0.8); MONO % 4.9 % (0.0-5.0); NEUTROPHILS # 3.6 K/mm3 (1.8-7.7); NEUTROPHILS % 58.3 % (36.0-66.0); PLATELET COUNT, AUTOMATED 210 k/mm3 (150-450); RED CELL DISTRIBUTION WIDTH 17.5 % (11.5-14.5); WHITE BLOOD COUNT 6.2 K/mm3 (4.0-10.0)
[2016-04-06 05:41] LABS: ANION GAP 7 MEQ/L (8-16); BLOOD UREA NITROGEN 16 MG/DL (7-18); CALCIUM LEVEL 7.9 MG/DL (8.8-10.2); CARBON DIOXIDE LEVEL 25 MEQ/L (21-32); CHLORIDE LEVEL 112 MEQ/L (98-107); CREATININE FOR GFR 0.89 MG/DL (0.70-1.30); GLOMERULAR FILTRATION RATE > 60.0 (>49); GLUCOSE, FASTING 61 MG/DL (80-110); POTASSIUM SERUM 4.5 MEQ/L (3.5-5.1); SODIUM LEVEL 144 MEQ/L (136-145)
[2016-04-06] MEDS: oxyCODONE 5MG TAB PO PRN ×3 (05:43→20:10)
[2016-04-06 05:45] LABS: MEAN CORPUSCULAR VOLUME 90.8 fl (80.0-96.0)
[2016-04-06] MEDS: NS 1,000 ML IV SCH ×2 (05:45→16:09)
[2016-04-06 07:05] VITALS: BP 136/78
[2016-04-06] MEDS: SUCRALFATE SUSP 1GM/10ML UD PO SCH ×4 (08:24→20:11)
[2016-04-06] MEDS: PANTOPRAZOLE 40MG INJ (PROTONIX) (C9113) IV SCH ×2 (08:24→20:10)
[2016-04-06] MEDS: GABAPENTIN 300 MG CAP PO SCH ×3 (08:24→20:11)
[2016-04-06] MEDS: MULTIVITAMINS/MINERALS THERAP 1 TAB PO SCH (08:24)
[2016-04-06] MEDS: ASPIRIN 81 MG CHEW TABLET PO SCH (08:24)
[2016-04-06] MEDS: FERROUS SULFATE 325MG TAB PO SCH (08:25)
[2016-04-06] MEDS: buPROPion **XL** TABLET 150MG (WELLBUTRIN XL) PO SCH (08:25)
[2016-04-06] MEDS: SENOKOT S TAB PO SCH ×2 (08:25→20:11)
[2016-04-06] MEDS: ASCORBIC ACID 500 MG TAB PO SCH (08:25)
[2016-04-06 12:00] VITALS: BP_SYST 108; BP_SYST 117; BP_SYST 126; BP_DIAS 65; BP_DIAS 67; BP_DIAS 71
[2016-04-06 14:54] VITALS: BP 132/66
[2016-04-06] MEDS: DONEPEZIL 5 MG TAB PO SCH (20:11)
[2016-04-06] MEDS: FLUoxetine 20 MG CAP PO SCH (20:11)
[2016-04-06] MEDS: ATORVASTATIN 20 MG TAB PO SCH (20:11)
[2016-04-06 20:55] VITALS: BP 140/65
--- NOTE | 2016-04-06 23:16 | EDDOCDS ---
Nurse's Notes [facility] Name: Jorge Valle Age: 66 yrs Sex: Male : 1950 Arrival Date: 04/04/2016 Time: 17:53 Bed 7 Private MD: Diagnosis: Dehydration;Weakness;Unspecified dementia;Adjustment disorder with depressed mood Presentation: 04/04 18:00 Presenting complaint: EMS states: Initial call was for shortness of breath. Upon EMS ld5 arrival, BP was 86/57. Fluids given en route. Recent admission to [facility] for pneumonia. Pt had an episode of vomiting last night and again this morning. Denies nausea. The last date and time the patient was known to be well was was at 16:00 on April 03, 2016. No acute neurological deficit is noted. Transition of care: patient was not received from another setting of care. 18:00 Acuity: JOHAN Level 3 ld5 18:00 Method Of Arrival: Ambulance ld5 18:00 Pre-hospital glucose is not applicable to this patient. Suicide/Homicide risk ld5 assessment- the patient denies having any suicidal and/or homicidal ideations and does not present with any other emotional, behavioral or mental health complaints. Status: Patient is not a patient service technician pst or dependent. 18:12 Adult Sepsis Screening: The patient does not have new or worsening altered mentation. ld5 Patient's respiratory rate is less than 22. Systolic blood pressure is less than or equal to 100 (1 point). Patient has a qSOFA score of 1- Negative Sepsis Screen. Triage Assessment: 18:19 The onset of the patients symptoms was more than three hours ago. General: Appears ill, ld5 Behavior is cooperative. Pain: Denies pain. Neurological: Level of Consciousness is awake, alert, obeys commands. Respiratory: Airway is patent Respiratory effort is even, labored, Reports shortness of breath at rest on exertion. GI: Reports vomiting, "out of nowhere", decreased oral intake Denies nausea. Musculoskeletal: Reports "I can't stay up straight", pt reports "I'm not dizzy or lightheaded". Historical: - Allergies: no known allergies; - Home Meds: 1. oxycodone 5 mg Oral tab 2 tabs every 6 hours (Last dose: 04/03/2016) 2. omeprazole 20 mg Oral cpDR 1 cap once daily (Last dose: 04/03/2016) 3. atorvastatin 80 mg oral tab 1 tab once daily (Last dose: 04/03/2016) 4. bupropion HCl 150 mg Oral TbER 1 tab once daily (Last dose: 04/03/2016) 5. lamotrigine 150 mg Oral tab 1 tab once daily (Last dose: Unknown) 6. ferrous sulfate 325 mg (65 mg iron) Oral cpER 325 mg daily (Last dose: 04/03/2016) 7. aspirin 81 mg Oral tab 1 tab once daily (Last dose: 04/03/2016) 8. gabapentin 300 mg Oral cap 1 cap 3 times per day (Last dose: 04/03/2016) 9. fluoxetine 40 mg Oral cap 1 cap once daily (Last dose: 04/03/2016) 10. ramipril 2.5 mg Oral cap 1 cap 2 times per day (Last dose: 04/03/2016) 11. Senna Lax 8.6 mg oral tab 2 tabs once daily (Last dose: 04/03/2016) 12. multivitamin Oral tab 1 tablet daily (Last dose: 04/03/2016) 13. melatonin 5 mg Oral cap 5 mg nightly (Last dose: 04/03/2016) 14. Nitrostat 0.4 mg SL subl 1 tab every 5 minutes as needed 15. Miralax 17 gram/dose Oral powd daily as needed - PMHx: Anxiety; CAD; Depression; GERD; High Cholesterol; pelvic fracture; Pneumonia; [place]; - PSHx: pelvic surgery; Cardiac stents; - The history from nurses notes was reviewed: and I agree with what is documented. - Social history: Smoking status: Patient uses tobacco products, light tobacco smoker. No barriers to communication noted, The patient speaks fluent Swazi, Speaks appropriately for age. - : The pt / caregiver states he / she is not on anticoagulants. Home medication list is obtained from the patient, family members, a discharge med list, Differing med lists from pt, family members, discharge med list and admission med list. Provider aware. - Exposure Risk Screening:: None identified. - Immunization history:: All immunizations up-to-date. - Family history: Not pertinent. - Social history:: the patient smokes cigarettes the patient does not drink alcohol. Screenin:53 Screening information is obtained from the patient. Fall risk: At risk due to age, gait cf2 disturbance, immobility, prior history of falls. Assistance ADL's: Requires assistance with. Abuse/DV Screen: The patient / caregiver reports he/she is: not in a situation that causes fear, pain or injury. Nutritional screening: No deficits noted. Advance Directives: Further advance directive information is declined. home support is adequate. Assessment: 18:59 General: Daughter out to request pain medication for pt. Provider made aware. No new ld5 orders at this time. Will continue to monitor. 21:53 Reassessment: Patient appears in no apparent distress at this time. Patient denies pain cf2 at this time. Patient states feeling better. Adult Sepsis Screening: The patient does not have new or worsening altered mentation. Patient's respiratory rate is less than 22. Systolic blood pressure is greater than 100. Patient has a qSOFA score of 0- Negative Sepsis Screen. Vital Signs: 18:01 Pulse 109; Temp 95.9(O); ls3 18:14 BP 100 / 64; Resp 26; Pulse Ox 96% on R/A; Weight 52.62 kg; Height 5 ft. 7 in. (170.18 ls3 cm); Pain 8/10; 18:38 BP 130 / 58 (auto/); ld5 18:38 Pulse 100 MON; Pulse Ox 100% ; ld5 19:23 BP 137 / 55 (auto/); cf2 19:23 Pulse 94 MON; Pulse Ox 98% ; cf2 19:53 Pulse 90 MON; Pulse Ox 98% ; cf2 19:53 BP 109 / 55 (auto/); cf2 20:23 Pulse 88 MON; Pulse Ox 100% ; cf2 20:23 BP 134 / 60 (auto/); cf2 20:38 BP 117 / 59 (auto/); cf2 20:38 Pulse 88 MON; Pulse Ox 100% ; cf2 21:21 Pulse 88 MON; cf2 21:23 BP 98 / 50 (auto/); cf2 21:38 BP 115 / 58 (auto/); cf2 21:43 Pulse 88 MON; Pulse Ox 97% ; cf2 18:14 Body Mass Index 18.17 (52.62 kg, 170.18 cm) ls3 Vitals: 21:55 Glucose Measurement intriage. Log In Time N/A - ambulance arrival. cf2 ED Course: 17:54 Patient visited by Sana Sue, Renal Case Manager. deg 17:54 Patient moved to Waiting deg 17:54 Patient moved to 7 deg 18:05 Solo Carpio MD is Attending Physician. pc 18:06 Triage Initiated ld5 18:15 Patient visited by Alize Heath PCA. ls3 18:22 Patient visited by Solo Carpio MD. pc 18:27 Maintain field IV. Good blood return noted. Site clean & dry. Gauge & site: 20g right ld5 AC. 19:00 Patient visited by Katelynn Sheth RN. ld5 19:02 Patient visited by Alex Olivarez PCA. kb5 19:08 Genie Chaparro,MARGARITA is Primary Nurse. cf2 19:08 Patient visited by Genie Chaparro RN. cf2 19:17 Marcelina Bustillos is Hospitalizing Provider. pc 19:20 [facility] Payment Agreement was scanned into [employer] and attached to record. [id number] 19:27 Patient name changed from Jorge\\S\\\\S\\Beadling\\S\\ to Jorge\\S\\ \\S\\Beadling. EDMS 20:47 Patient visited by Genie Chaparro RN. cf2 20:49 Patient visited by Genie Chaparro,MARGARITA. cf2 21:53 Patient visited by Genie Chaparro,MARGARITA. cf2 21:53 The patient / caregiver is instructed regarding the plan of care and ED course. Patient cf2 has correct armband on for positive identification. Placed in gown. Bed in low position. Call light in reach. Side rails up X 1. Side rails up X2. auto bumper straightener on. Pulse ox on. NIBP on. Property :Personal belongings accompany Pt. Door closed. Noise minimized. Visitors limited. Lights dimmed. Moved to private room. Head of bed elevated. 21:53 No procedures done that require assistance. cf2 21:56 Patient visited by Alex Olivarez PCA. kb5 Administered Medications: 19:44 Drug: NS 0.9% 1000 ml [sodium chloride 0.9 % intravenous solution] Route: IV; Rate: cf2 bolus; Site: left antecubital; 19:44 Drug: oxyCODONE-acetaminophen 2 tabs [oxycodone-acetaminophen 5 mg-325 mg tablet (2 cf2 tabs)] Route: PO; 20:49 Follow up: Response: No significant change. cf2 Order Results: Lab Order: CBC with Diff; SPEC'M 04/04/16 18:06 Test: WHITE BLOOD COUNT; Value: 10.2; Range: 4.0-10.0; Abnormal: Above high normal; Units: K/mm3; Status: F Test: RED BLOOD COUNT; Value: 2.99; Range: 4.30-6.10; Abnormal: Below low normal; Units: M/mm3; Status: F Test: HEMOGLOBIN; Value: 9.0; Range: 14.0-18.0; Abnormal: Below low normal; Units: g/dl; Status: F Test: HEMATOCRIT; Value: 27.8; Range: 42.0-52.0; Abnormal: Below low normal; Units: %; Status: F Test: MEAN CORPUSCULAR VOLUME; Value: 93.1; Range: 80.0-96.0; Units: fl; Status: F Test: MEAN CORPUSCULAR HEMOGLOBIN; Value: 30.1; Range: 27.0-33.0; Units: pg; Status: F Test: MEAN CORPUSCULAR HGB CONC; Value: 32.4; Range: 32.0-36.5; Units: g/dl; Status: F Test: RED CELL DISTRIBUTION WIDTH; Value: 16.2; Range: 11.5-14.5; Abnormal: Above high normal; Units: %; Status: F Test: PLATELET COUNT, AUTOMATED; Value: 379; Range: 150-450; Units: k/mm3; Status: F Test: NEUTROPHILS %; Value: 63.3; Range: 36.0-66.0; Units: %; Status: F Test: LYMPH %; Value: 24.9; Range: 24.0-44.0; Units: %; Status: F Test: MONO %; Value: 4.6; Range: 0.0-5.0; Units: %; Status: F Test: EOS %; Value: 3.3; Range: 0.0-3.0; Abnormal: Above high normal; Units: %; Status: F Test: BASO %; Value: 1.2; Range: 0.0-1.0; Abnormal: Above high normal; Units: %; Status: F Test: LARGE UNSTAINED CELL %; Value: 2.8; Range: 0.0-4.0; Units: %; Status: F Test: NEUTROPHILS #; Value: 6.4; Range: 1.8-7.7; Units: K/mm3; Status: F Test: LYMPH #; Value: 2.8; Range: 1.5-4.5; Units: K/mm3; Status: F Test: MONO #; Value: 0.5; Range: 0.0-0.8; Units: K/mm3; Status: F Test: EOS #; Value: 0.3; Range: 0.0-0.50; Units: K/mm3; Status: F Test: BASO #; Value: 0.1; Range: 0.0-0.2; Units: K/mm3; Status: F Test: LARGE UNSTAINED CELL #; Value: 0.3; Range: 0.0-0.4; Units: K/mm3; Status: F Lab Order: MED Profile; [facility] 04/04/16 18:06 Test: GLUCOSE, FASTING; Value: 87; Range: 80-110; Units: MG/DL; Status: F Test: BLOOD UREA NITROGEN; Value: 24; Range: 7-18; Abnormal: Above high normal; Units: MG/DL; Status: F Test: CREATININE FOR GFR; Value: 1.18; Range: 0.70-1.30; Units: MG/DL; Status: F Test: GLOMERULAR FILTRATION RATE; Value: > 60.0; Range: >49; Status: F Test: SODIUM LEVEL; Value: 139; Range: 136-145; Units: MEQ/L; Status: F Test: POTASSIUM SERUM; Value: 4.6; Range: 3.5-5.1; Units: MEQ/L; Status: F Test: CHLORIDE LEVEL; Value: 103; Range: 98-107; Units: MEQ/L; Status: F Test: CARBON DIOXIDE LEVEL; Value: 27; Range: 21-32; Units: MEQ/L; Status: F Test: ANION GAP; Value: 9; Range: 8-16; Units: MEQ/L; Status: F Test: CALCIUM LEVEL; Value: 9.4; Range: 8.8-10.2; Units: MG/DL; Status: F Test Note: ; Units are mL/min/1.73 m2 Chronic Kidney Disease Staging per NKF: Stage I & II GFR >=60 Normal to Mildly Decreased Stage III GFR 30-59 Moderately Decreased Stage IV GFR 15-29 Severely Decreased Stage V GFR <15 Very Little GFR Left ESRD GFR <15 on ASSISTANT WINEMAKER Test: CPK CREATINE PHOSPHOKINASE; Range: 39-308; Units: U/L; Status: I Test: CK-MB VALUE MASS; Range: 0.0-3.6; Units: NG/ML; Status: I Test: MB/CK RELATIVE INDEX; Range: < OR =4; Status: I Test: TROPONIN I; Range: < 0.10; Units: NG/ML; Status: I Lab Order: Liver Profile; 04/04/16 18:06 Test: AST/SGOT; Value: 11; Range: 15-37; Abnormal: Below low normal; Units: U/L; Status: F Test: ALT/SGPT; Value: 16; Range: 12-78; Units: U/L; Status: F Test: ALKALINE PHOSPHATASE; Value: 124; Range: 45-117; Abnormal: Above high normal; Units: U/L; Status: F Test: BILIRUBIN,TOTAL; Value: 0.3; Range: 0.2-1.0; Units: MG/DL; Status: F Test: BILIRUBIN,DIRECT; Value: < 0.1; Range: 0.0-0.2; Units: MG/DL; Status: F Test: TOTAL PROTEIN; Value: 6.8; Range: 6.4-8.2; Units: GM/DL; Status: F Test: ALBUMIN; Value: 3.3; Range: 3.2-5.2; Units: GM/DL; Status: F Test: ALBUMIN/GLOBULIN RATIO; Value: 0.94; Range: 1.00-1.93; Abnormal: Below low normal; Status: F Lab Order: Lipase; 04/04/16 18:06 Test: LIPASE; Value: 58; Range: 73-393; Abnormal: Below low normal; Units: U/L; Status: F Lab Order: TOTAL IRON BINDING CAPACIT; 04/04/16 18:06 Test: IRON (FE); Value: 106; Range: 65-175; Units: UG/DL; Status: F Test: TOTAL IRON BINDING CAPACITY; Value: 314; Range: 250-450; Units: UG/DL; Status: F Test: PERCENT SATURATION; Value: 33.8; Range: 19.7-37.4; Units: %; Status: F Lab Order: VITAMIN B12 LEVEL; SPEC'M 04/04/16 18:06 Test: VITAMIN B12 LEVEL; Value: 434; Range: 247-911; Units: PG/ML; Status: F Test Note: ; VITAMIN B12 NORMAL RANGE NORMAL 247 - 911 PG/ML INDETERMINATE 211 - 246 PG/ML DEFICIENT LESS THAN 211 PG/ML Lab Order: FOLATE; SPEC'M 04/04/16 18:06 Test: FOLATE; Value: 16.2; Range: >5.4; Units: NG/ML; Status: F Test Note: ; FOLATE NORMAL RANGE NORMAL GREATER THAN 5.4 NG/ML INDETERMINATE 3.4-5.4 NG/ML DEFICIENT LESS THAN 3.4 NG/ML Lab Order: FERRITIN; SPEC'M 04/04/16 18:06 Test: FERRITIN; Value: 45; Range: 26-388; Units: NG/ML; Status: F Outcome: 19:18 Decision to Hospitalize by Provider. pc 21:53 Discharge Assessment: Patient awake, alert and oriented x 3. No cognitive and/or cf2 functional deficits noted. Patient verbalized understanding of disposition instructions. Patient awake and alert. Oriented to person, place and time. patient administered narcotics - yes. Patient was admitted to the hospital or transferred to another facility. The following High Risk Discharge criteria are identified: None. Condition: stable. No special radiology studies were completed. 22:15 Patient left the ED. cf2 Signatures: Dispatcher [employer] EDMS Solo Carpio MD MD pc Murray, Denise, Renal Case Manager Unit deg Alex Olivarez, PC MAINTENANCE TECHNICIAN PC MAINTENANCE TECHNICIAN kb5 Katelynn Sheth,RN RN ld5 Alize Heath, PC MAINTENANCE TECHNICIAN PC MAINTENANCE TECHNICIAN ls3 Yue Larkin, Reg Reg ks16 Genie Chaparro RN RN cf2 Corrections: (The following items were deleted from the chart) 18:59 18:51 Home Meds: oxycodone 5 mg Oral tab 2 tabs every 6 hours as needed (Last Dose: ld5 04/03/2016); ld5 Chart Complete MTDD
--- NOTE | 2016-04-06 23:16 | EDDOCDS ---
Physician Documentation [facility] Name: Jorge Valle Age: 66 yrs Sex: Male : 1950 Arrival Date: 04/04/2016 Time: 17:53 Bed 7 Private MD: Disposition: 04/04 19:16 Critical Care: Critical care not applicable. pc Disposition: 04/04/16 19:18 Hospitalization ordered by Marcelina Bustillos for Inpatient Admission. Preliminary diagnosis are Dehydration, Weakness, Unspecified dementia, Adjustment disorder with depressed mood. - Bed requested for 4 Jay. - Status is Inpatient Admission. cf2 - Condition is Stable. - Problem is new. - Symptoms are unchanged. HPI: 18:26 This 66 yrs old Male presents to ER via Ambulance with complaints of Weakness.pc 18:26 The history is obtained from the patient, the patient's family/friend. A reliable pc history and/or examination was not able to be obtained, due to baseline dementia. He developed nausea and vomiting last evening that resolved after a few hours. He went ot bed and awoke feeling like he might get sick again. He sat up and felt lightheaded and too weak to stand. He vomited two more times and none since. He has felt weak all day and his daughter called for EMS tonight because he is too weak to stand. He denies any abdomina pain or nausea currently, denies any chest pain or headaches. He has been having low BPs since an admission to [facility] 3 weeks ago, for reported pneumonia with normal CXR and sputum. His records are not consistent, with his ramipril not listed as an admission drug but noted as doubled on discharge; his metoprolol dose was halved from 125. mg BID but is now not on any. 18:37 The patient has been recently seen by their primary care provider, yesterday. pc Historical: - Allergies: no known allergies; - Home Meds: 1. oxycodone 5 mg Oral tab 2 tabs every 6 hours (Last dose: 04/03/2016) 2. omeprazole 20 mg Oral cpDR 1 cap once daily (Last dose: 04/03/2016) 3. atorvastatin 80 mg oral tab 1 tab once daily (Last dose: 04/03/2016) 4. bupropion HCl 150 mg Oral TbER 1 tab once daily (Last dose: 04/03/2016) 5. lamotrigine 150 mg Oral tab 1 tab once daily (Last dose: Unknown) 6. ferrous sulfate 325 mg (65 mg iron) Oral cpER 325 mg daily (Last dose: 04/03/2016) 7. aspirin 81 mg Oral tab 1 tab once daily (Last dose: 04/03/2016) 8. gabapentin 300 mg Oral cap 1 cap 3 times per day (Last dose: 04/03/2016) 9. fluoxetine 40 mg Oral cap 1 cap once daily (Last dose: 04/03/2016) 10. ramipril 2.5 mg Oral cap 1 cap 2 times per day (Last dose: 04/03/2016) 11. Senna Lax 8.6 mg oral tab 2 tabs once daily (Last dose: 04/03/2016) 12. multivitamin Oral tab 1 tablet daily (Last dose: 04/03/2016) 13. melatonin 5 mg Oral cap 5 mg nightly (Last dose: 04/03/2016) 14. Nitrostat 0.4 mg SL subl 1 tab every 5 minutes as needed 15. Miralax 17 gram/dose Oral powd daily as needed - PMHx: Anxiety; CAD; Depression; GERD; High Cholesterol; pelvic fracture; Pneumonia; [place]; - PSHx: pelvic surgery; Cardiac stents; - The history from nurses notes was reviewed: and I agree with what is documented. - Social history: Smoking status: Patient uses tobacco products, light tobacco smoker. No barriers to communication noted, The patient speaks fluent Korean, Speaks appropriately for age. - : The pt / caregiver states he / she is not on anticoagulants. Home medication list is obtained from the patient, family members, a discharge med list, Differing med lists from pt, family members, discharge med list and admission med list. Provider aware. - Exposure Risk Screening:: None identified. - Immunization history:: All immunizations up-to-date. - Family history: Not pertinent. - Social history:: the patient smokes cigarettes the patient does not drink alcohol. ROS: 18:37 All systems are negative except as listed. pc Exam: 18:37 General Appearance: no acute distress, alert. pc 18:37 EENT: normal eye inspection, ears, nose and throat normal, mucous membranes dry. 18:37 Neck: The exam reveals no acute abnormalities. ROM is normal and painless. No nuchal rigidity is noted.. 18:37 Respiratory: no respiratory distress, Breath sounds: wheezing, scattered. 18:37 CVS: regular rhythm, normal S1 and S2, no murmurs, strong peripheral pulses, normal capillary refill, the patient is tachycardic, at 109 bpm. 18:37 Abdomen: soft, non-tender, no organomegaly, normal bowel sounds. 18:37 Back: normal inspection. 18:37 Skin: skin color is normal, warm, dry, the skin turgor is poor. 18:37 Extremities: The extremities have a grossly normal appearance, are non-tender, without acute ROM abnormalities. 18:37 Neuro: oriented x 3, cranial nerves normal as tested, no motor deficits, no sensory deficits. 18:37 Psych: mood is depressed, affect is flat. Vital Signs: 18:01 Pulse 109; Temp 95.9(O); ls3 18:14 BP 100 / 64; Resp 26; Pulse Ox 96% on R/A; Weight 52.62 kg / 116.01 lbs; Height 5 ft. 7 ls3 in. (170.18 cm); Pain 8/10; 18:38 BP 130 / 58 (auto/); ld5 18:38 Pulse 100 MON; Pulse Ox 100% ; ld5 19:23 BP 137 / 55 (auto/); cf2 19:23 Pulse 94 MON; Pulse Ox 98% ; cf2 19:53 Pulse 90 MON; Pulse Ox 98% ; cf2 19:53 BP 109 / 55 (auto/); cf2 20:23 Pulse 88 MON; Pulse Ox 100% ; cf2 20:23 BP 134 / 60 (auto/); cf2 20:38 BP 117 / 59 (auto/); cf2 20:38 Pulse 88 MON; Pulse Ox 100% ; cf2 21:21 Pulse 88 MON; cf2 21:23 BP 98 / 50 (auto/); cf2 21:38 BP 115 / 58 (auto/); cf2 21:43 Pulse 88 MON; Pulse Ox 97% ; cf2 18:14 Body Mass Index 18.17 (52.62 kg, 170.18 cm) ls3 MDM: 18:26 IV Saline Lock ordered. pc 18:27 CBC with Diff Ordered. EDMS 18:27 MED Profile Ordered. EDMS 18:27 Liver Profile Ordered. EDMS 18:28 Lipase Ordered. EDMS 18:37 Differential Diagnosis: weakness, nausea and vomiting resolved, hypotension resolved. pc Plan: labs. 18:55 CBC with Diff Reviewed. pc 18:55 MED Profile Reviewed. pc 18:55 Liver Profile Reviewed. pc 18:55 Lipase Reviewed. pc 18:57 NS 0.9% 1000 ml IV at bolus once ordered. pc 18:57 Marble Carver/Pulse Ox/q 30 min VS ordered. pc 18:58 Chest, 1 View Ordered. EDMS 19:16 Data reviewed: old medical records, vital signs, nurses notes, lab test results. Test pc interpretation: LAB - all labs as ordered have been reviewed, interpreted and considered in the overall management of the clinical presentation;. The patient has been re-examined and re-evaluated. There is no appreciated change of the patient's symptoms at this time. Physician consultation: Dr. Marcelina Bustillos was contacted at 19:17, regarding admission, and will see patient in ED. Disposition: The historical points, examination findings, and any diagnostic results supporting the provided diagnosis, were discussed with the patient or legal guardian. The need for further work-up and/or treatment in the hospital was explained. 19:18 Financial registration complete. ks16 19:19 BED REQUEST+ADM ordered. EDMS 19:20 [facility] Payment Agreement was scanned into [employer] and attached to record. ks16 19:34 CBC WITH DIFFERENTIAL Ordered. EDMS 19:34 BASIC METABOLIC PROFILE Ordered. EDMS 19:35 Admission / Observation Status ordered. EDMS 19:35 REGULAR DIET ordered. EDMS 19:44 oxyCODONE-acetaminophen 5 mg-325 mg 2 tabs PO once ordered. cf2 20:56 PHYSICAL THERAPY EVAL & TREAT ordered. EDMS 21:50 CARDIAC MARKER PANEL Ordered. EDMS Administered Medications: 19:44 Drug: NS 0.9% 1000 ml [sodium chloride 0.9 % intravenous solution] Route: IV; Rate: cf2 bolus; Site: left antecubital; 19:44 Drug: oxyCODONE-acetaminophen 2 tabs [oxycodone-acetaminophen 5 mg-325 mg tablet (2 cf2 tabs)] Route: PO; 20:49 Follow up: Response: No significant change. cf2 Signatures: Dispatcher [employer] EDMS Solo Carpio MD MD pc Lopresti, Mary-Elizabeth, Floor Sander Unit ml3 Katelynn ShethRN RN ld5 Yue Larkin, Reg Reg ks16 Genie Chaparro,RN RN cf2 The chart was reviewed and I authenticate all verbal orders and agree with the evaluation and treatment provided.Corrections: (The following items were deleted from the chart) 18:40 18:26 He developed nausea and vomiting last evening that resolved after a few hours. He pc went ot bed and awoke feeling like he might get sick again. He sat up and felt lightheaded and too weak to stand. He vomited two more times and none since. He has felt weak all day and his daughter called for EMS tonight because he is too weak to stand. He has been having low BPs since an admission to [facility] 3 weeks ago, for reported pneumonia with normal CXR and sputum. His records are not consistent, with his ramipril not listed as an admission drug but noted as doubled on discharge; his metoprolol dose was halved from 25mg BID pc 18:59 18:51 Home Meds: oxycodone 5 mg Oral tab 2 tabs every 6 hours as needed (Last Dose: ld5 04/03/2016); ld5 19:44 19:37 VITAMIN B12 LEVEL ordered. EDMS EDMS 19:44 19:37 FOLATE ordered. EDMS EDMS 19:44 19:37 IRON (FE) ordered. EDMS EDMS 19:44 19:37 FERRITIN ordered. EDMS EDMS 19:44 19:38 TOTAL IRON BINDING CAPACIT ordered. EDMS EDMS 20:15 18:57 Orthostatic VS ordered. cf2 21:49 21:43 CARDIAC MARKER PANEL ordered. EDMS EDMS Attachments: 19:20 [facility] [place] Agreement [email or web address] Chart Complete MTDD
--- NOTE | 2016-04-06 23:17 | EDDOCDS ---
Physician Documentation [facility] Name: Jorge Valle Age: 66 yrs Sex: Male : 1950 Arrival Date: 04/04/2016 Time: 17:53 Bed 7 Private MD: Disposition: 04/04 19:16 Critical Care: Critical care not applicable. pc Disposition: 04/04/16 19:18 Hospitalization ordered by Marcelina Bustillos for Inpatient Admission. Preliminary diagnosis are Dehydration, Weakness, Unspecified dementia, Adjustment disorder with depressed mood. - Bed requested for 4 Nelson. - Status is Inpatient Admission. cf2 - Condition is Stable. - Problem is new. - Symptoms are unchanged. HPI: 18:26 This 66 yrs old Male presents to ER via Ambulance with complaints of Weakness.pc 18:26 The history is obtained from the patient, the patient's family/friend. A reliable pc history and/or examination was not able to be obtained, due to baseline dementia. He developed nausea and vomiting last evening that resolved after a few hours. He went ot bed and awoke feeling like he might get sick again. He sat up and felt lightheaded and too weak to stand. He vomited two more times and none since. He has felt weak all day and his daughter called for EMS tonight because he is too weak to stand. He denies any abdomina pain or nausea currently, denies any chest pain or headaches. He has been having low BPs since an admission to [facility] 3 weeks ago, for reported pneumonia with normal CXR and sputum. His records are not consistent, with his ramipril not listed as an admission drug but noted as doubled on discharge; his metoprolol dose was halved from 125. mg BID but is now not on any. 18:37 The patient has been recently seen by their primary care provider, yesterday. pc Historical: - Allergies: no known allergies; - Home Meds: 1. oxycodone 5 mg Oral tab 2 tabs every 6 hours (Last dose: 04/03/2016) 2. omeprazole 20 mg Oral cpDR 1 cap once daily (Last dose: 04/03/2016) 3. atorvastatin 80 mg oral tab 1 tab once daily (Last dose: 04/03/2016) 4. bupropion HCl 150 mg Oral TbER 1 tab once daily (Last dose: 04/03/2016) 5. lamotrigine 150 mg Oral tab 1 tab once daily (Last dose: Unknown) 6. ferrous sulfate 325 mg (65 mg iron) Oral cpER 325 mg daily (Last dose: 04/03/2016) 7. aspirin 81 mg Oral tab 1 tab once daily (Last dose: 04/03/2016) 8. gabapentin 300 mg Oral cap 1 cap 3 times per day (Last dose: 04/03/2016) 9. fluoxetine 40 mg Oral cap 1 cap once daily (Last dose: 04/03/2016) 10. ramipril 2.5 mg Oral cap 1 cap 2 times per day (Last dose: 04/03/2016) 11. Senna Lax 8.6 mg oral tab 2 tabs once daily (Last dose: 04/03/2016) 12. multivitamin Oral tab 1 tablet daily (Last dose: 04/03/2016) 13. melatonin 5 mg Oral cap 5 mg nightly (Last dose: 04/03/2016) 14. Nitrostat 0.4 mg SL subl 1 tab every 5 minutes as needed 15. Miralax 17 gram/dose Oral powd daily as needed - PMHx: Anxiety; CAD; Depression; GERD; High Cholesterol; pelvic fracture; Pneumonia; MS; - PSHx: pelvic surgery; Cardiac stents; - The history from nurses notes was reviewed: and I agree with what is documented. - Social history: Smoking status: Patient uses tobacco products, light tobacco smoker. No barriers to communication noted, The patient speaks fluent Luxembourgish, Speaks appropriately for age. - : The pt / caregiver states he / she is not on anticoagulants. Home medication list is obtained from the patient, family members, a discharge med list, Differing med lists from pt, family members, discharge med list and admission med list. Provider aware. - Exposure Risk Screening:: None identified. - Immunization history:: All immunizations up-to-date. - Family history: Not pertinent. - Social history:: the patient smokes cigarettes the patient does not drink alcohol. ROS: 18:37 All systems are negative except as listed. pc Exam: 18:37 General Appearance: no acute distress, alert. pc 18:37 EENT: normal eye inspection, ears, nose and throat normal, mucous membranes dry. 18:37 Neck: The exam reveals no acute abnormalities. ROM is normal and painless. No nuchal rigidity is noted.. 18:37 Respiratory: no respiratory distress, Breath sounds: wheezing, scattered. 18:37 CVS: regular rhythm, normal S1 and S2, no murmurs, strong peripheral pulses, normal capillary refill, the patient is tachycardic, at 109 bpm. 18:37 Abdomen: soft, non-tender, no organomegaly, normal bowel sounds. 18:37 Back: normal inspection. 18:37 Skin: skin color is normal, warm, dry, the skin turgor is poor. 18:37 Extremities: The extremities have a grossly normal appearance, are non-tender, without acute ROM abnormalities. 18:37 Neuro: oriented x 3, cranial nerves normal as tested, no motor deficits, no sensory deficits. 18:37 Psych: mood is depressed, affect is flat. Vital Signs: 18:01 Pulse 109; Temp 95.9(O); ls3 18:14 BP 100 / 64; Resp 26; Pulse Ox 96% on R/A; Weight 52.62 kg / 116.01 lbs; Height 5 ft. 7 ls3 in. (170.18 cm); Pain 8/10; 18:38 BP 130 / 58 (auto/); ld5 18:38 Pulse 100 MON; Pulse Ox 100% ; ld5 19:23 BP 137 / 55 (auto/); cf2 19:23 Pulse 94 MON; Pulse Ox 98% ; cf2 19:53 Pulse 90 MON; Pulse Ox 98% ; cf2 19:53 BP 109 / 55 (auto/); cf2 20:23 Pulse 88 MON; Pulse Ox 100% ; cf2 20:23 BP 134 / 60 (auto/); cf2 20:38 BP 117 / 59 (auto/); cf2 20:38 Pulse 88 MON; Pulse Ox 100% ; cf2 21:21 Pulse 88 MON; cf2 21:23 BP 98 / 50 (auto/); cf2 21:38 BP 115 / 58 (auto/); cf2 21:43 Pulse 88 MON; Pulse Ox 97% ; cf2 18:14 Body Mass Index 18.17 (52.62 kg, 170.18 cm) ls3 MDM: 18:26 IV Saline Lock ordered. pc 18:27 CBC with Diff Ordered. EDMS 18:27 MED Profile Ordered. EDMS 18:27 Liver Profile Ordered. EDMS 18:28 Lipase Ordered. EDMS 18:37 Differential Diagnosis: weakness, nausea and vomiting resolved, hypotension resolved. pc Plan: labs. 18:55 CBC with Diff Reviewed. pc 18:55 MED Profile Reviewed. pc 18:55 Liver Profile Reviewed. pc 18:55 Lipase Reviewed. pc 18:57 NS 0.9% 1000 ml IV at bolus once ordered. pc 18:57 Contract Negotiation Manager/Pulse Ox/q 30 min VS ordered. pc 18:58 Chest, 1 View Ordered. EDMS 19:16 Data reviewed: old medical records, vital signs, nurses notes, lab test results. Test pc interpretation: LAB - all labs as ordered have been reviewed, interpreted and considered in the overall management of the clinical presentation;. The patient has been re-examined and re-evaluated. There is no appreciated change of the patient's symptoms at this time. Physician consultation: Dr. Marcelina Bustillos was contacted at 19:17, regarding admission, and will see patient in ED. Disposition: The historical points, examination findings, and any diagnostic results supporting the provided diagnosis, were discussed with the patient or legal guardian. The need for further work-up and/or treatment in the hospital was explained. 19:18 Financial registration complete. [email or web address] 19:19 BED REQUEST+ADM ordered. EDMS 19:20 [facility] Payment Agreement was scanned into [employer] and attached to record. [email or web address] 19:34 CBC WITH DIFFERENTIAL Ordered. EDMS 19:34 BASIC METABOLIC PROFILE Ordered. EDMS 19:35 Admission / Observation Status ordered. EDMS 19:35 REGULAR DIET ordered. EDMS 19:44 oxyCODONE-acetaminophen 5 mg-325 mg 2 tabs PO once ordered. cf2 20:56 PHYSICAL THERAPY EVAL & TREAT ordered. EDMS 21:50 CARDIAC MARKER PANEL Ordered. EDMS Administered Medications: 19:44 Drug: NS 0.9% 1000 ml [sodium chloride 0.9 % intravenous solution] Route: IV; Rate: cf2 bolus; Site: left antecubital; 19:44 Drug: oxyCODONE-acetaminophen 2 tabs [oxycodone-acetaminophen 5 mg-325 mg tablet (2 cf2 tabs)] Route: PO; 20:49 Follow up: Response: No significant change. cf2 Signatures: Dispatcher [employer] EDMS Solo Carpio MD MD pc Lopresti, Mary-Elizabeth, Equipment Installation Professional Unit ml3 Katelynn ShethRN RN ld5 Yue Larkin, Reg Reg [email or web address] Genie Chaparro,RN RN cf2 The chart was reviewed and I authenticate all verbal orders and agree with the evaluation and treatment provided.Corrections: (The following items were deleted from the chart) 18:40 18:26 He developed nausea and vomiting last evening that resolved after a few hours. He pc went ot bed and awoke feeling like he might get sick again. He sat up and felt lightheaded and too weak to stand. He vomited two more times and none since. He has felt weak all day and his daughter called for EMS tonight because he is too weak to stand. He has been having low BPs since an admission to [facility] 3 weeks ago, for reported pneumonia with normal CXR and sputum. His records are not consistent, with his ramipril not listed as an admission drug but noted as doubled on discharge; his metoprolol dose was halved from 25mg BID pc 18:59 18:51 Home Meds: oxycodone 5 mg Oral tab 2 tabs every 6 hours as needed (Last Dose: ld5 04/03/2016); ld5 19:44 19:37 VITAMIN B12 LEVEL ordered. EDMS EDMS 19:44 19:37 FOLATE ordered. EDMS EDMS 19:44 19:37 IRON (FE) ordered. EDMS EDMS 19:44 19:37 FERRITIN ordered. EDMS EDMS 19:44 19:38 TOTAL IRON BINDING CAPACIT ordered. EDMS EDMS 20:15 18:57 Orthostatic VS ordered. cf2 21:49 21:43 CARDIAC MARKER PANEL ordered. EDMS EDMS Attachments: 19:20 [facility] [place] [email or web address] Chart Complete MTDD
[2016-04-07] MEDS: oxyCODONE 5MG TAB PO PRN ×2 (02:22→20:29)
[2016-04-07] MEDS: NS 1,000 ML IV SCH ×2 (02:26→16:18)
[2016-04-07 05:50] VITALS: BP_SYST 10; BP_SYST 104; BP_SYST 109; BP_SYST 136; BP_DIAS 54; BP_DIAS 55; BP_DIAS 65
[2016-04-07 06:38] LABS: BASO % 0.1 % (0.0-1.0); EOS # 0.4 K/mm3 (0.0-0.50); EOS % 7.2 % (0.0-3.0); LARGE UNSTAINED CELL # 0.2 K/mm3 (0.0-0.4); LARGE UNSTAINED CELL % 3.5 % (0.0-4.0); LYMPH # 1.6 K/mm3 (1.5-4.5); LYMPH % 26.1 % (24.0-44.0); MEAN CORPUSCULAR HEMOGLOBIN 30.5 pg (27.0-33.0); MEAN CORPUSCULAR VOLUME 92.4 fl (80.0-96.0); MONO # 0.3 K/mm3 (0.0-0.8); MONO % 5.7 % (0.0-5.0); NEUTROPHILS # 3.4 K/mm3 (1.8-7.7); NEUTROPHILS % 57.5 % (36.0-66.0); PLATELET COUNT, AUTOMATED 209 k/mm3 (150-450); RED CELL DISTRIBUTION WIDTH 16.8 % (11.5-14.5)
[2016-04-07 06:42] LABS: ANION GAP 7 MEQ/L (8-16); BLOOD UREA NITROGEN 11 MG/DL (7-18); CARBON DIOXIDE LEVEL 26 MEQ/L (21-32); CHLORIDE LEVEL 114 MEQ/L (98-107); GLOMERULAR FILTRATION RATE > 60.0 (>49); GLUCOSE, FASTING 93 MG/DL (80-110); POTASSIUM SERUM 4.1 MEQ/L (3.5-5.1); SODIUM LEVEL 147 MEQ/L (136-145)
[2016-04-07] MEDS: SUCRALFATE SUSP 1GM/10ML UD PO SCH ×4 (08:59→20:20)
[2016-04-07] MEDS: PANTOPRAZOLE 40MG INJ (PROTONIX) (C9113) IV SCH ×2 (08:59→20:20)
[2016-04-07] MEDS: FERROUS SULFATE 325MG TAB PO SCH (09:00)
[2016-04-07] MEDS: SENOKOT S TAB PO SCH ×2 (09:00→20:20)
[2016-04-07] MEDS: ASPIRIN 81 MG CHEW TABLET PO SCH (09:00)
[2016-04-07] MEDS: buPROPion **XL** TABLET 150MG (WELLBUTRIN XL) PO SCH (09:00)
[2016-04-07] MEDS: ASCORBIC ACID 500 MG TAB PO SCH (09:00)
[2016-04-07] MEDS: MULTIVITAMINS/MINERALS THERAP 1 TAB PO SCH (09:00)
[2016-04-07] MEDS: GABAPENTIN 300 MG CAP PO SCH ×3 (09:00→20:20)
--- NOTE | 2016-04-07 10:38 | IPNPDOC ---
Assessment/Plan Date Seen The patient was seen on 04/06/16. Problems Problems: (1) Anemia Status: Acute Response to Treatment: Improving Discussed With: Patient Problem Specific Plan: Consult Specialist, Monitor Clinically, Repeat Labs Problem Text: history of chronic anemia complicated with acute likely blood loss anemia serial h/h transfuse 2prbc gi consult iv protonix clear liquids, advance as tolerated (2) CAD (coronary artery disease) Status: Chronic Discussed With: Patient Problem Text: s/p pci hold plavix secondary to gi bleed discussed with cardiology monitoring analyst, assistance appreciated (3) Depression Status: Chronic Discussed With: Patient Problem Specific Plan: Monitor Clinically Problem Text: continue prozac, wellbutrin (4) CHF (congestive heart failure) Status: Chronic Discussed With: Patient Problem Specific Plan: Monitor Clinically Problem Text: diastolic dysfunction (5) HTN (hypertension) Status: Chronic Discussed With: Patient Problem Text: has been hypotensive, hold home meds for now (6) GERD (gastroesophageal reflux disease) Status: Chronic Discussed With: Patient Problem Specific Plan: Monitor Clinically Problem Text: as per above iv ppi (7) Dyslipidemia Status: Chronic Plan / VTE VTE Prophylaxis Ordered?: Yes (mechanical) Plan IVF: Initiate Diet: Advance Activity: Bedrest Therapy: PT Medications: Change to IV Diagnostics: Repeat Labs in AM Anticipated Discharge: Home, Home With Services Subjective Review of Systems CC/HPI The patient is a 66-year-old male admitted with a reason for visit of Dehydration, Nausea And Vomiting. General: Denies: Chills, Fatigue, Malaise, Night Sweats, Normal Appetite, Other Symptoms, ROS Unobtainable Constitutional: Denies: Chills, Fatigue, Fever, Lethargy, Malaise, Night Sweats , Other, Weakness, Weight Loss Eyes: Denies: Conjunctivae inflammation, Eyelid inflammation, Other, Pain, Redness, Vision change ENT: Denies: Dysphagia, Ear Pain, Epistaxis, Head Aches, Other Symptoms, Post Nasal Drip, Sinus Congestion, Sore Throat Skin: Denies: Breakdown, Bruising, Dry, Itching, Jaundice, Lesions, Nail Changes, Other, Rash Pulmonary: Denies: Cough, Dyspnea, Other Symptoms, Pleuritic Chest Pain Cardiovascular: Denies: Chest Pain, Edema, Lt Headedness, Orthopnea, Other Symptoms, Palpitations, Paroxysmal Noc. Dyspnea Gastrointestinal: Denies: Abdominal Pain, Constipation, Diarrhea, Hematochezia , Melena, Nausea, Other Symptoms, Vomiting Objective Physical Examination General Exam: Positive: Alert, Cooperative, No Acute Distress Eye Exam: Positive: PERRLA ENT Exam: Positive: Atraumatic Neck Exam: Positive: Supple Chest Exam: Positive: Clear to auscultation, Normal air movement Heart Exam: Positive: Rate Normal, Regular Rhythm Telemetry: Positive: No significant arrhythmia, Sinus Abdomen Exam: Positive: Normal bowel sounds, Soft, Negative: Tenderness Psych Exam: Positive: Oriented x 3 Vital Signs/I&O Vital Signs Date Time Temp Pulse Resp B/P Pulse Ox O2 Delivery O2 Flow Rate FiO2 04/07/16 05:50 97.4 65 16 136/65 98 Room Air I&O- Last 24 Hours up to 6 AM 04/07/16 06:00 Intake Total 1560 ml Output Total 1250 ml Balance 310 ml Laboratory Data Labs 24H Laboratory Tests 2 04/07/16 06:10: Anion Gap 7L, White Blood Count 6.0, Red Blood Count 2.88L, Hemoglobin 8.8L, Hematocrit 26.6L, Mean Corpuscular Volume 92.4, Mean Corpuscular Hemoglobin 30.5 , Mean Corpuscular Hemoglobin Concent 33.0, Red Cell Distribution Width 16.8H, Platelet Count 209, Neutrophils (%) (Auto) 57.5, Lymphocytes (%) (Auto) 26.1, Monocytes (%) (Auto) 5.7H, Eosinophils (%) (Auto) 7.2H, Basophils (%) (Auto) 0.1 , Neutrophils # (Auto) 3.4, Lymphocytes # (Auto) 1.6, Monocytes # (Auto) 0.3, Eosinophils # (Auto) 0.4, Basophils # (Auto) 0.0, Blood Urea Nitrogen 11, Creatinine 0.90, Sodium Level 147H, Potassium Level 4.1, Chloride Level 114H, Carbon Dioxide Level 26, Calcium Level 8.0L, Glomerular Filtration Rate > 60.0, Large Unclassified Cells # 0.2, Large Unclassified Cells % 3.5 CBC/BMP Laboratory Tests 04/07/16 06:10 Calcium Level 8.0 L, Red Blood Count 2.88 L, Mean Corpuscular Volume 92.4, Mean Corpuscular Hemoglobin 30.5, Mean Corpuscular Hemoglobin Concent 33.0, Red Cell Distribution Width 16.8 H, Neutrophils (%) (Auto) 57.5, Lymphocytes (%) (Auto) 26.1, Monocytes (%) (Auto) 5.7 H, Eosinophils (%) (Auto) 7.2 H, Basophils (%) ( Auto) 0.1, Neutrophils # (Auto) 3.4, Lymphocytes # (Auto) 1.6, Monocytes # (Auto ) 0.3, Eosinophils # (Auto) 0.4, Basophils # (Auto) 0.0 Microbiology Microbiology 04/05/16 Stool Occult Blood (ERROL) - Final, Complete KWAKU RAIN MD Apr 07, 2016 10:38
--- NOTE | 2016-04-07 10:44 | IPNPDOC ---
Assessment/Plan Date Seen The patient was seen on 04/07/16. Problems Problems: (1) Anemia Status: Acute Response to Treatment: Improving Discussed With: Patient Problem Specific Plan: Consult Specialist, Monitor Clinically, Repeat Labs Problem Text: history of chronic anemia complicated with acute likely blood loss anemia serial h/h s/p 2prbc gi consult iv protonix diet advanced still orthostatic - iv fluids (2) CAD (coronary artery disease) Status: Chronic Discussed With: Patient Problem Text: s/p pci hold plavix secondary to gi bleed discussed with cardiology disaster or damage control specialist, assistance appreciated (3) Depression Status: Chronic Discussed With: Patient Problem Specific Plan: Monitor Clinically Problem Text: continue prozac, wellbutrin (4) CHF (congestive heart failure) Status: Chronic Discussed With: Patient Problem Specific Plan: Monitor Clinically Problem Text: diastolic dysfunction (5) HTN (hypertension) Status: Chronic Discussed With: Patient Problem Text: has been hypotensive, hold home meds for now (6) GERD (gastroesophageal reflux disease) Status: Chronic Discussed With: Patient Problem Specific Plan: Monitor Clinically Problem Text: as per above iv ppi (7) Dyslipidemia Status: Chronic Plan / VTE VTE Prophylaxis Ordered?: Yes (mechanical) Plan IVF: Continue Diet: Continue Current Activity: Advance Therapy: PT Diagnostics: Repeat Labs in AM Anticipated Discharge: Home, Home With Services Subjective Review of Systems CC/HPI The patient is a 66-year-old male admitted with a reason for visit of Dehydration, Nausea And Vomiting. General: Denies: Chills, Fatigue, Malaise, Night Sweats, Normal Appetite, Other Symptoms, ROS Unobtainable Constitutional: Denies: Chills, Fatigue, Fever, Lethargy, Malaise, Night Sweats , Other, Weakness, Weight Loss Eyes: Denies: Conjunctivae inflammation, Eyelid inflammation, Other, Pain, Redness, Vision change ENT: Reports: Other Symptoms (c/o metallic taste), Denies: Dysphagia, Ear Pain, Epistaxis, Head Aches, Post Nasal Drip, Sinus Congestion, Sore Throat Skin: Denies: Breakdown, Bruising, Dry, Itching, Jaundice, Lesions, Nail Changes, Other, Rash Pulmonary: Denies: Cough, Dyspnea, Other Symptoms, Pleuritic Chest Pain Cardiovascular: Denies: Chest Pain, Edema, Lt Headedness, Orthopnea, Other Symptoms, Palpitations, Paroxysmal Noc. Dyspnea Gastrointestinal: Denies: Abdominal Pain, Constipation, Diarrhea, Hematochezia , Melena, Nausea, Other Symptoms, Vomiting Genitourinary: Denies: Dysuria, Frequency, Hematuria, Incontinence, Other Symptoms, Retention Neurological: Reports: Incoordination, Other Symptoms (complains of some unsteadiness when standing) Objective Physical Examination General Exam: Positive: Alert, Cooperative, No Acute Distress Eye Exam: Positive: PERRLA ENT Exam: Positive: Atraumatic Neck Exam: Positive: Supple Chest Exam: Positive: Clear to auscultation, Normal air movement Heart Exam: Positive: Rate Normal, Regular Rhythm Abdomen Exam: Positive: Normal bowel sounds, Soft, Negative: Tenderness Psych Exam: Positive: Mental status NL, Mood NL, Oriented x 3 Vital Signs/I&O Vital Signs Date Time Temp Pulse Resp B/P Pulse Ox O2 Delivery O2 Flow Rate FiO2 04/07/16 05:50 97.4 65 16 136/65 98 Room Air I&O- Last 24 Hours up to 6 AM 04/07/16 06:00 Intake Total 1560 ml Output Total 1250 ml Balance 310 ml Laboratory Data Labs 24H Laboratory Tests 2 04/07/16 06:10: Anion Gap 7L, White Blood Count 6.0, Red Blood Count 2.88L, Hemoglobin 8.8L, Hematocrit 26.6L, Mean Corpuscular Volume 92.4, Mean Corpuscular Hemoglobin 30.5 , Mean Corpuscular Hemoglobin Concent 33.0, Red Cell Distribution Width 16.8H, Platelet Count 209, Neutrophils (%) (Auto) 57.5, Lymphocytes (%) (Auto) 26.1, Monocytes (%) (Auto) 5.7H, Eosinophils (%) (Auto) 7.2H, Basophils (%) (Auto) 0.1 , Neutrophils # (Auto) 3.4, Lymphocytes # (Auto) 1.6, Monocytes # (Auto) 0.3, Eosinophils # (Auto) 0.4, Basophils # (Auto) 0.0, Blood Urea Nitrogen 11, Creatinine 0.90, Sodium Level 147H, Potassium Level 4.1, Chloride Level 114H, Carbon Dioxide Level 26, Calcium Level 8.0L, Glomerular Filtration Rate > 60.0, Large Unclassified Cells # 0.2, Large Unclassified Cells % 3.5 CBC/BMP Laboratory Tests 04/07/16 06:10 Calcium Level 8.0 L, Red Blood Count 2.88 L, Mean Corpuscular Volume 92.4, Mean Corpuscular Hemoglobin 30.5, Mean Corpuscular Hemoglobin Concent 33.0, Red Cell Distribution Width 16.8 H, Neutrophils (%) (Auto) 57.5, Lymphocytes (%) (Auto) 26.1, Monocytes (%) (Auto) 5.7 H, Eosinophils (%) (Auto) 7.2 H, Basophils (%) ( Auto) 0.1, Neutrophils # (Auto) 3.4, Lymphocytes # (Auto) 1.6, Monocytes # (Auto ) 0.3, Eosinophils # (Auto) 0.4, Basophils # (Auto) 0.0 Microbiology Microbiology 04/05/16 Stool Occult Blood (ERROL) - Final, Complete KWAKU RAIN MD Apr 07, 2016 10:44
--- NOTE | 2016-04-07 13:12 | CR ---
DATE OF CONSULTATION: 04/05/2016 This is a 66-year-old white male who apparently was admitted to [facility] ([facility]) for evaluation of exacerbation of shortness of breath. The patient apparently was admitted to [facility] in February and discharged 03/22/2016, he was discharged for apparently community-acquired pneumonia and exacerbation of his known history of chronic obstructive pulmonary disease (COPD). The patient presented with episodes of vomiting and crampy abdominal pain the day of admission and had increasing problems with shortness of breath and hypotension. The patient was admitted for further evaluation of his hypotension and shortness of breath. No apparent history of hematemesis or melena or hematochezia or bright red blood per rectum. PAST MEDICAL HISTORY: Positive for: 1. Pelvic fracture and surgery in August 2015. 2. Coronary artery stenting. He is on aspirin and Plavix, 81 mg of aspirin and Plavix 75 mg daily. SOCIAL HISTORY: Cigarettes: The patient was a heavy smoker, up to two packs a day but apparently quit in October 2015. Denies any alcohol abuse. MEDICATIONS AT HOME: Include: - aspirin - Plavix - atorvastatin - ferrous sulfate - vitamin B 500 mg daily - alprazolam - fluoxetine - lamotrigine - gabapentin - melatonin - donepezil - multivitamins - nitroglycerin - omeprazole - oxycodone - ramipril REVIEW OF SYSTEMS: Noncontributory to the above problem. GENERAL: He is a well-developed, well-nourished white male in no obvious acute distress. Appears stated age. The patient is somewhat thin. The chest was clear but decreased breath sounds. Cardiovascular exam showed a regular rhythm. No murmurs or gallops. Normal physiological split S1-S2. Abdomen: Soft, nontender, no masses, guarding, rebound. No hepatosplenomegaly. Bowel sounds positive. LABORATORY STUDIES: On admission: Showed a white count of 10,000, hemoglobin 9. ANALYSIS: 1. Anemia, apparently hematemesis. The patient was hospitalized for 24 hours and apparently had some hematemesis and a sudden drop in his white count from admission where he was found on admission to have a hemoglobin of 9.0 and 27.8, however, the next day on 04/05/2016, he was found to have a hemoglobin of 6.5 and 19.6, thus gastroenterology (GI) was consulted for immediate endoscopy. PLAN: Will be to immediately perform upper endoscopy to try to find a possible ulcer secondary to the aspirin and Plavix.
[2016-04-07 14:00] VITALS: BP 145/63
[2016-04-07 15:10] VITALS: BP_SYST 130; BP_SYST 146; BP_SYST 160; BP_DIAS 58; BP_DIAS 70; BP_DIAS 79
[2016-04-07] MEDS: ATORVASTATIN 20 MG TAB PO SCH (20:20)
[2016-04-07] MEDS: DONEPEZIL 5 MG TAB PO SCH (20:20)
[2016-04-07] MEDS: FLUoxetine 20 MG CAP PO SCH (20:20)
[2016-04-07 22:00] VITALS: BP 157/70
[2016-04-08 06:00] VITALS: BP_SYST 130; BP_SYST 139; BP_SYST 176; BP_DIAS 59; BP_DIAS 74; BP_DIAS 79
[2016-04-08 06:01] LABS: BASO % 0.2 % (0.0-1.0); EOS # 0.5 K/mm3 (0.0-0.50); EOS % 7.7 % (0.0-3.0); LARGE UNSTAINED CELL # 0.3 K/mm3 (0.0-0.4); LARGE UNSTAINED CELL % 4.1 % (0.0-4.0); LYMPH # 1.6 K/mm3 (1.5-4.5); LYMPH % 27.6 % (24.0-44.0); MEAN CORPUSCULAR HEMOGLOBIN 30.9 pg (27.0-33.0); MEAN CORPUSCULAR HGB CONC 33.5 g/dl (32.0-36.5); MEAN CORPUSCULAR VOLUME 92.3 fl (80.0-96.0); MONO # 0.3 K/mm3 (0.0-0.8); MONO % 5.6 % (0.0-5.0); NEUTROPHILS # 3.2 K/mm3 (1.8-7.7); NEUTROPHILS % 54.8 % (36.0-66.0); PLATELET COUNT, AUTOMATED 211 k/mm3 (150-450); RED CELL DISTRIBUTION WIDTH 17.4 % (11.5-14.5); WHITE BLOOD COUNT 5.9 K/mm3 (4.0-10.0)
[2016-04-08 06:09] LABS: ANION GAP 7 MEQ/L (8-16); BLOOD UREA NITROGEN 8 MG/DL (7-18); CALCIUM LEVEL 7.7 MG/DL (8.8-10.2); CARBON DIOXIDE LEVEL 25 MEQ/L (21-32); CHLORIDE LEVEL 114 MEQ/L (98-107); CREATININE FOR GFR 0.91 MG/DL (0.70-1.30); GLOMERULAR FILTRATION RATE > 60.0 (>49); GLUCOSE, FASTING 92 MG/DL (80-110); POTASSIUM SERUM 3.6 MEQ/L (3.5-5.1); SODIUM LEVEL 146 MEQ/L (136-145)
[2016-04-08] MEDS: NS 1,000 ML IV SCH ×2 (07:35→16:54)
[2016-04-08] MEDS: SUCRALFATE SUSP 1GM/10ML UD PO SCH ×4 (08:17→21:31)
[2016-04-08] MEDS: FERROUS SULFATE 325MG TAB PO SCH (08:17)
[2016-04-08] MEDS: SENOKOT S TAB PO SCH ×2 (08:17→21:32)
[2016-04-08] MEDS: PANTOPRAZOLE 40MG INJ (PROTONIX) (C9113) IV SCH (08:17)
[2016-04-08] MEDS: GABAPENTIN 300 MG CAP PO SCH ×3 (08:17→21:31)
[2016-04-08] MEDS: MULTIVITAMINS/MINERALS THERAP 1 TAB PO SCH (08:17)
[2016-04-08] MEDS: ASPIRIN 81 MG CHEW TABLET PO SCH (08:17)
[2016-04-08] MEDS: ASCORBIC ACID 500 MG TAB PO SCH (08:17)
[2016-04-08] MEDS: oxyCODONE 5MG TAB PO PRN ×2 (08:22→21:36)
[2016-04-08] MEDS: buPROPion **XL** TABLET 150MG (WELLBUTRIN XL) PO SCH (08:22)
--- NOTE | 2016-04-08 11:14 | IPNPDOC ---
Assessment/Plan Date Seen The patient was seen on 04/08/16. Problems Problems: (1) Polyuria Status: Acute Discussed With: Patient Problem Specific Plan: Monitor Clinically, Repeat Labs Problem Text: Obtain UA, UC/S for possible UTI. Could be contributing to his orthostasis. Start ceftriaxone after receiving urine sample. (2) Orthostatic hypotension Status: Acute Response to Treatment: Progressing Discussed With: Patient Problem Specific Plan: Monitor Clinically Problem Text: Discussed with patient regarding blood pressure drops. Patient states he typically will take time when standing from sitting to equilibrate before proceeding with activity. Possibly medication related (psych meds). For now continue with IV fluids, can follow up outpatient with his PCP regarding adjusting his psych meds if needed. (3) Anemia Status: Acute Response to Treatment: Improving Discussed With: Patient Problem Specific Plan: Consult Specialist, Monitor Clinically, Repeat Labs Problem Text: history of chronic anemia complicated with acute likely blood loss anemia serial h/h s/p 2prbc gi consult iv protonix diet advanced still orthostatic - iv fluids (4) CAD (coronary artery disease) Status: Chronic Discussed With: Patient Problem Text: s/p pci hold plavix secondary to gi bleed discussed with cardiology professor of economics, assistance appreciated (5) Depression Status: Chronic Discussed With: Patient Problem Specific Plan: Monitor Clinically Problem Text: continue prozac, wellbutrin (6) CHF (congestive heart failure) Status: Chronic Discussed With: Patient Problem Specific Plan: Monitor Clinically Problem Text: diastolic dysfunction (7) HTN (hypertension) Status: Chronic Discussed With: Patient Problem Text: has been hypotensive, hold home meds for now (8) GERD (gastroesophageal reflux disease) Status: Chronic Discussed With: Patient Problem Specific Plan: Monitor Clinically Problem Text: as per above iv ppi (9) Dyslipidemia Status: Chronic Plan / VTE VTE Prophylaxis Ordered?: Yes (mechanical) Plan IVF: Continue Diet: Continue Current Activity: Advance Therapy: PT Diagnostics: Repeat Labs in AM Anticipated Discharge: Home, Home With Services Plan Text Still orthostatic. Possibly hypovolemia complicated with UTI. IV fluids, UA and UC&S pending. Possible disposition issue as patient lives with daughter who provides some assistance. Daughter is apparently in IMHU holding. Subjective Review of Systems CC/HPI The patient is a 66-year-old male admitted with a reason for visit of Dehydration, Nausea And Vomiting. General: Denies: Chills, Fatigue, Malaise, Night Sweats, Normal Appetite, Other Symptoms, ROS Unobtainable Constitutional: Denies: Chills, Fatigue, Fever, Lethargy, Malaise, Night Sweats , Other, Weakness, Weight Loss Eyes: Denies: Conjunctivae inflammation, Eyelid inflammation, Other, Pain, Redness, Vision change ENT: Denies: Dysphagia, Ear Pain, Epistaxis, Head Aches, Other Symptoms, Post Nasal Drip, Sinus Congestion, Sore Throat Skin: Denies: Breakdown, Bruising, Dry, Itching, Jaundice, Lesions, Nail Changes, Other, Rash Pulmonary: Denies: Cough, Dyspnea, Other Symptoms, Pleuritic Chest Pain Cardiovascular: Denies: Chest Pain, Edema, Lt Headedness, Orthopnea, Other Symptoms, Palpitations, Paroxysmal Noc. Dyspnea Gastrointestinal: Denies: Abdominal Pain, Constipation, Diarrhea, Hematochezia , Melena, Nausea, Other Symptoms, Vomiting Genitourinary: Reports: Frequency, Denies: Dysuria, Hematuria, Incontinence, Other Symptoms, Retention Hematologic: Denies: Bleeding Excessively, Bruising, Enlarged Lymph Nodes, Other Hematologic, Petecchia, Purpura Endocrine: Reports: Polyuria, Denies: Cold Intolerance, Heat Intolerance, Other Endocrine Sx, Polydipsia, Polyphagia Objective Physical Examination General Exam: Positive: Alert, Cooperative, No Acute Distress Eye Exam: Positive: PERRLA ENT Exam: Positive: Atraumatic Neck Exam: Positive: Supple Chest Exam: Positive: Clear to auscultation, Normal air movement Heart Exam: Positive: Rate Normal, Regular Rhythm Abdomen Exam: Positive: Normal bowel sounds, Soft, Negative: Tenderness Psych Exam: Positive: Mental status NL, Mood NL, Oriented x 3 Vital Signs/I&O Vital Signs Date Time Temp Pulse Resp B/P Pulse Ox O2 Delivery O2 Flow Rate FiO2 04/08/16 08:22 18 04/08/16 06:00 96.6 65 176/79 98 Room Air I&O- Last 24 Hours up to 6 AM 04/08/16 06:00 Intake Total 2080 ml Output Total 1825 ml Balance 255 ml Laboratory Data Labs 24H Laboratory Tests 2 04/08/16 05:29: Anion Gap 7L, White Blood Count 5.9, Red Blood Count 2.91L, Hemoglobin 9.0L, Hematocrit 26.9L, Mean Corpuscular Volume 92.3, Mean Corpuscular Hemoglobin 30.9 , Mean Corpuscular Hemoglobin Concent 33.5, Red Cell Distribution Width 17.4H, Platelet Count 211, Neutrophils (%) (Auto) 54.8, Lymphocytes (%) (Auto) 27.6, Monocytes (%) (Auto) 5.6H, Eosinophils (%) (Auto) 7.7H, Basophils (%) (Auto) 0.2 , Neutrophils # (Auto) 3.2, Lymphocytes # (Auto) 1.6, Monocytes # (Auto) 0.3, Eosinophils # (Auto) 0.5, Basophils # (Auto) 0.0, Blood Urea Nitrogen 8, Creatinine 0.91, Sodium Level 146H, Potassium Level 3.6, Chloride Level 114H, Carbon Dioxide Level 25, Calcium Level 7.7L, Glomerular Filtration Rate > 60.0, Large Unclassified Cells # 0.3, Large Unclassified Cells % 4.1H CBC/BMP Laboratory Tests 04/08/16 05:29 Calcium Level 7.7 L, Red Blood Count 2.91 L, Mean Corpuscular Volume 92.3, Mean Corpuscular Hemoglobin 30.9, Mean Corpuscular Hemoglobin Concent 33.5, Red Cell Distribution Width 17.4 H, Neutrophils (%) (Auto) 54.8, Lymphocytes (%) (Auto) 27.6, Monocytes (%) (Auto) 5.6 H, Eosinophils (%) (Auto) 7.7 H, Basophils (%) ( Auto) 0.2, Neutrophils # (Auto) 3.2, Lymphocytes # (Auto) 1.6, Monocytes # (Auto ) 0.3, Eosinophils # (Auto) 0.5, Basophils # (Auto) 0.0 Microbiology Microbiology 04/05/16 Stool Occult Blood (ERROL) - Final, Complete KWAKU RAIN MD Apr 08, 2016 11:14
[2016-04-08 14:00] VITALS: BP 149/83
[2016-04-08] MEDS: cefTRIAXone SOD 1 GM in D5W MINI-BAG PLUS 50 ML IV SCH (14:30)
[2016-04-08 18:00] VITALS: BP_SYST 143; BP_SYST 150; BP_DIAS 66; BP_DIAS 67; BP_DIAS 70
[2016-04-08] MEDS: DONEPEZIL 5 MG TAB PO SCH (21:31)
[2016-04-08] MEDS: PANTOPRAZOLE 40MG TAB (PROTONIX) PO SCH (21:32)
[2016-04-08] MEDS: FLUoxetine 20 MG CAP PO SCH (21:32)
[2016-04-08] MEDS: ATORVASTATIN 20 MG TAB PO SCH (21:32)
[2016-04-08 22:00] VITALS: BP 156/70
[2016-04-09 06:00] VITALS: BP_SYST 139; BP_SYST 145; BP_SYST 157; BP_DIAS 65; BP_DIAS 71
[2016-04-09] MEDS: NS 1,000 ML IV SCH (06:18)
[2016-04-09] MEDS: oxyCODONE 5MG TAB PO PRN (06:18)
[2016-04-09 06:45] LABS: BASO % 0.2 % (0.0-1.0); EOS # 0.7 K/mm3 (0.0-0.50); EOS % 9.7 % (0.0-3.0); LARGE UNSTAINED CELL # 0.3 K/mm3 (0.0-0.4); LARGE UNSTAINED CELL % 3.7 % (0.0-4.0); LYMPH # 2.1 K/mm3 (1.5-4.5); LYMPH % 27.8 % (24.0-44.0); MEAN CORPUSCULAR HEMOGLOBIN 30.9 pg (27.0-33.0); MEAN CORPUSCULAR HGB CONC 32.2 g/dl (32.0-36.5); MEAN CORPUSCULAR VOLUME 95.8 fl (80.0-96.0); MONO # 0.4 K/mm3 (0.0-0.8); MONO % 5.1 % (0.0-5.0); NEUTROPHILS # 4.1 K/mm3 (1.8-7.7); NEUTROPHILS % 53.5 % (36.0-66.0); PLATELET COUNT, AUTOMATED 255 k/mm3 (150-450); RED CELL DISTRIBUTION WIDTH 17.9 % (11.5-14.5); WHITE BLOOD COUNT 7.6 K/mm3 (4.0-10.0)
[2016-04-09 07:00] LABS: ANION GAP 11 MEQ/L (8-16); BLOOD UREA NITROGEN 6 MG/DL (7-18); CARBON DIOXIDE LEVEL 25 MEQ/L (21-32); CHLORIDE LEVEL 109 MEQ/L (98-107); CREATININE FOR GFR 0.92 MG/DL (0.70-1.30); GLOMERULAR FILTRATION RATE > 60.0 (>49); GLUCOSE, FASTING 83 MG/DL (80-110); POTASSIUM SERUM 3.6 MEQ/L (3.5-5.1); SODIUM LEVEL 145 MEQ/L (136-145)
[2016-04-09] MEDS: ASCORBIC ACID 500 MG TAB PO SCH (08:42)
[2016-04-09] MEDS: SUCRALFATE SUSP 1GM/10ML UD PO SCH ×2 (08:42→12:36)
[2016-04-09] MEDS: PANTOPRAZOLE 40MG TAB (PROTONIX) PO SCH (08:42)
[2016-04-09] MEDS: MULTIVITAMINS/MINERALS THERAP 1 TAB PO SCH (08:42)
[2016-04-09] MEDS: FERROUS SULFATE 325MG TAB PO SCH (08:42)
[2016-04-09] MEDS: SENOKOT S TAB PO SCH (08:42)
[2016-04-09] MEDS: ASPIRIN 81 MG CHEW TABLET PO SCH (08:42)
[2016-04-09] MEDS: buPROPion **XL** TABLET 150MG (WELLBUTRIN XL) PO SCH (08:42)
[2016-04-09] MEDS: GABAPENTIN 300 MG CAP PO SCH ×2 (08:42→15:11)
[2016-04-09] MEDS ORDERED: CIPR500T19 PO (10:52)
[2016-04-09] MEDS: cefTRIAXone SOD 1 GM in D5W MINI-BAG PLUS 50 ML IV SCH (12:36)
[2016-04-09 14:00] VITALS: BP 152/72
[2016-04-09] MEDS ORDERED: CIPR250T3 PO (15:43)
--- NOTE | 2016-04-09 18:33 | DSES ---
DATE OF ADMISSION: 04/05/2016 DATE OF DISCHARGE: 04/09/2016 PRIMARY CARE PROVIDER: GHULAM Peters CONSULTANTS: Gastroenterology, Dr. Marie. PROCEDURES: Upper (GI) gastrointestinal endoscopy and biopsy. COMPLICATIONS: None. ADMISSION/DISCHARGE DIAGNOSES: 1. Polyuria, possibly secondary to urinary tract infection (UTI). 2. Orthostatic hypotension. 3. Anemia. 4. Coronary artery disease. 5. Depression. 6. Diastolic congestive heart failure. 7. Hypertension. 8. Gastroesophageal reflux disease. 9. Dyslipidemia. HOSPITAL COURSE: The patient is a 66-year-old male who presented to [facility] on 04/04/2016 for difficulty breathing and generalized fatigue. A few days prior to admission, the patient had significant abdominal pain accompanied with multiple episodes of vomiting and diarrhea. When the patient arrived to the emergency room, the patient was found to have severe hypotension with a blood pressure of 87/57. The patient was given IV fluid for his severe hypotension from dehydration. The patient's gastrointestinal (GI) symptoms controlled with medications. On 04/05/2016, the patient was found to have acute worsening of his chronic anemia. Hemoglobin dropped from 9 to 6.5. The patient received two packed red blood cells transfusions. The patient was placed nothing by mouth and GI specialist, Dr. Marie, was consulted. After the blood transfusion, the patient's hemoglobin and hematocrit stabilized at around 9. The patient's is on hold secondary to the GI bleed. On 04/05/2016, the patient had an emergent upper endoscopy by Dr. Marie. Late results came back for acute gastritis/duodenitis. Later, the patient started having polyuria. Urinalysis was obtained which showed possible urinary tract infection (UTI) and the patient was started on ceftriaxone. Urine cultures obtained. On 04/09/2016, the patient's symptoms showed significant improvement. Hemoglobin and hematocrit remained stable, and the patient was discharged home with recommendation to followup with primary care provider within one week. OBJECTIVE: VITAL SIGNS: Temperature 97.8, pulse is 67, respiratory rate 18, blood pressure is 152/72, pulse oximetry is 99% on room air. LABORATORY DATA: WBC is 7.6, hemoglobin is 10.1, hematocrit is 31.4, platelet count is 255. Sodium is 145, potassium 3.6, chloride is 109, carbon dioxide 25, BUN 6, creatinine 0.92, GFR greater than 60, fasting glucose 83, calcium is 8. Urinalysis on 04/08/2016 showed positive for WBC. Microbiology: Stool occult blood test on 04/05/2016 is positive. Urine culture is pending. GI pathology shows intestinal metaplasia, negative for dysplasia, extensively involving whole submitted fragment. Squamocolumnar junction mucosa with mild chronic inflammation. IMAGING STUDIES: CT of the chest showed no acute cardiopulmonary process. DISCHARGE MEDICATIONS: - ciprofloxacin 250 mg twice a day for three days - alprazolam 1 mg by mouth twice a day as needed for anxiety - vitamin C 500 mg by mouth daily - aspirin 81 mg by mouth daily - atorvastatin 80 mg by mouth at bedtime - Wellbutrin 300 mg by mouth daily - Plavix 75 mg by mouth daily - donepezil 5 mg by mouth at bedtime - ferrous sulfate 325 mg by mouth daily - fluoxetine 40 mg by mouth at bedtime - gabapentin 300 mg by mouth three times a day - lamotrigine 300 mg by mouth at bedtime - melatonin 5 mg by mouth at bedtime - multivitamin one tablet by mouth daily - nitroglycerine 0.4 mg sublingual every five minutes as needed for chest pain - omeprazole 20 mg by mouth daily - oxycodone 10 mg by mouth four times a day as needed for pain - ramipril 2.5 mg by mouth daily - Senna two tablets by mouth at bedtime DISCHARGE INSTRUCTIONS: Discharge home. Activity as tolerated. Low-salt diet as tolerated. The patient should followup with primary care provider, GHULAM Peters within one week. The patient should review the gastrointestinal (GI) biopsy pathology with primary care provider (PCP). The patient does continue complaining about the right hip pain from the previous hip replacement and recommend outpatient followup with PCP and the patient may possibly benefit from orthopedic surgery referral. The patient should continue three-day course of antibiotics for his urinary tract infection (UTI). DISCHARGE CONDITION: Stable. DISCHARGE TIME: Greater than 30 minutes.
== END 2016-04-09 17:03 | disposition home or self-care (01) | DRG 392 ==
LOC: M ED 17:53 → M ED INP 19:25 → M MSPAV 22:12 → OBSVTOIN 04-05 09:38 → M PCU 04-05 18:00 → M MSPAV 04-06 14:43
PROVIDERS: ADMIT Internal Medicine Nephrology; ATTEND Internal Medicine
PROC: 30253N1 (ICD-10-PCS; 2016-04-05)
PROC: 0DB48ZX Excision of Esophagogastric Junction, Via Natural or Artificial Opening Endoscopic, Diagnostic (ICD-10-PCS; principal; 2016-04-05 11:37)
DX: K29.00 Acute gastritis without bleeding (principal); D62 Acute posthemorrhagic anemia; N39.0 Urinary tract infection, site not specified; I50.32 Chronic diastolic (congestive) heart failure; F32.9 Major depressive disorder, single episode, unspecified; F03.90 Unspecified dementia, unspecified severity, without behavioral disturbance, psychotic disturbance, mood disturbance, and anxiety; I11.0 Hypertensive heart disease with heart failure; K21.9 Gastro-esophageal reflux disease without esophagitis; J44.9 Chronic obstructive pulmonary disease, unspecified; E86.0 Dehydration; L89.152 Pressure ulcer of sacral region, stage 2; K44.9 Diaphragmatic hernia without obstruction or gangrene; E78.5 Hyperlipidemia, unspecified; R26.9 Unspecified abnormalities of gait and mobility; I95.1 Orthostatic hypotension; R53.1 Weakness; I25.10 Atherosclerotic heart disease of native coronary artery without angina pectoris; R06.02 Shortness of breath; Z95.5 Presence of coronary angioplasty implant and graft; Z87.891 Personal history of nicotine dependence; Z79.82 Long term (current) use of aspirin; Z79.899 Other long term (current) drug therapy; Z79.02 Long term (current) use of antithrombotics/antiplatelets; Z96.641 Presence of right artificial hip joint

== ENCOUNTER 2016-08-10 22:00 | Emergency (ER) | payer MEDICARE ==
[~2016-08-10] VITALS: Ht 170.2 cm; Wt 52.6 kg
[~2016-08-10 22:00] MED LIST changes: +ALPR1TAB3 PO; +BACI500O74 TOP; -BACI50OI TOP; +CIPR250T3 PO; +CIPR500T19 PO; +DONE5TAB17 PO; +GABA-282 PO; -GABA300C3 PO
[2016-08-10] MEDS ORDERED: ASPIRIN 325 MG TAB PO ONE (23:15)
[2016-08-10 23:27] LABS: BASO % 0.4 % (0.0-1.0); EOS # 0.3 K/mm3 (0.0-0.50); EOS % 3.3 % (0.0-3.0); LARGE UNSTAINED CELL # 0.2 K/mm3 (0.0-0.4); LARGE UNSTAINED CELL % 2.2 % (0.0-4.0); LYMPH # 1.9 K/mm3 (1.5-4.5); MEAN CORPUSCULAR HEMOGLOBIN 29.9 pg (27.0-33.0); MEAN CORPUSCULAR HGB CONC 32.2 g/dl (32.0-36.5); MEAN CORPUSCULAR VOLUME 92.9 fl (80.0-96.0); MONO # 0.7 K/mm3 (0.0-0.8); MONO % 8.9 % (0.0-5.0); NEUTROPHILS # 5.1 K/mm3 (1.8-7.7); NEUTROPHILS % 63.2 % (36.0-66.0); PLATELET COUNT, AUTOMATED 235 k/mm3 (150-450); RED CELL DISTRIBUTION WIDTH 14.4 % (11.5-14.5)
[2016-08-10 23:31] LABS: INR 1.14
[2016-08-10 23:40] LABS: ANION GAP 6 MEQ/L (8-16); BLOOD UREA NITROGEN 11 MG/DL (7-18); CALCIUM LEVEL 8.4 MG/DL (8.8-10.2); CARBON DIOXIDE LEVEL 26 MEQ/L (21-32); CHLORIDE LEVEL 110 MEQ/L (98-107); CREATININE FOR GFR 1.09 MG/DL (0.70-1.30); GLOMERULAR FILTRATION RATE > 60.0 (>49); GLUCOSE, FASTING 98 MG/DL (80-110); POTASSIUM SERUM 4.2 MEQ/L (3.5-5.1); SODIUM LEVEL 142 MEQ/L (136-145)
[2016-08-11] MEDS ORDERED: METAL LOCK LOOP XX ONE (01:18)
[2016-08-11] MEDS ORDERED: HEPARIN DRIP 25,000 UNITS in APPROPRIATE DILUENT 1 EA IV SCH (03:59)
[2016-08-11] MEDS ORDERED: HEPARIN SOD (PORCINE) 5000 UNITS/ML VIAL IV ONE (04:00)
[2016-08-11] MEDS ORDERED: CLOPIDOGREL 75 MG TAB PO STA (04:10)
[2016-08-11] MEDS ORDERED: NITROGLYCERIN 2% OINT 1 GM *U/D* PKT TOP ONE (04:15)
[2016-08-11 04:23] VITALS: BP 117/56
[2016-08-11 05:26] VITALS: BP 120/66
--- NOTE | 2016-08-11 08:12 | REP ---
Clinical: Chest pain. Technique: Portable semiupright. Comparison: 04/04/2016. Findings: Mediastinum and cardiac silhouette are normal. Lung collazo are clear. No focal consolidation, effusion, or pneumothorax. Skeletal structures intact. Impression: No acute cardiopulmonary process or focal consolidation. Signed by José Luis Mccrary MD 08/11/2016 08:03 A
--- NOTE | 2016-08-11 20:02 | ECGEPIP ---
Stationary ECG Study [facility] - ED Test Date: 2016-08-10 Pat Name: ARNAUD GAYLE Department: Room: - Gender: M Rail Equipment Operator: ulices : 1950 Requested By: YOVANI HANSEN Order Number: [id number] Reading MD: Stefany Erazo Measurements Intervals [place] Rate: 62 P: 54 AR: 155 QRS: -1 QRSD: 83 T: 51 QT: 379 QTc: 387 Interpretive Statements SINUS RHYTHM SIMILAR 04/05/16 Electronically Signed On 08-11-2016 20:01:38 EDT by Stefany Erazo
--- NOTE | 2016-08-11 20:03 | ECGEPIP ---
Stationary ECG Study [facility] - ED Test Date: 2016-08-11 Pat Name: ARNAUD GAYLE Department: Room: - Gender: M Custodian Manager: : 1950 Requested By: YOVANI HANSEN Order Number: [id number] Reading MD: Stefany Erazo Measurements Intervals [place] Rate: 57 P: 53 OR: 150 QRS: -13 QRSD: 85 T: 47 QT: 419 QTc: 408 Interpretive Statements SINUS BRADYCARDIA WITH SINUS ARRHYTHMIA LOW QRS VOLTAGE IN EXTREMITY LEADS NONSPECIFIC ST & T-WAVE ABNORMALITY COMPARED 08/10/16 Electronically Signed On 08-11-2016 20:02:42 EDT by Stefany Erazo
== END 2016-08-11 05:32 | disposition short-term general hospital (02) ==
LOC: EDBD 22:00 → M ED 23:45
DX: I21.4 Non-ST elevation (NSTEMI) myocardial infarction (principal); I25.10 Atherosclerotic heart disease of native coronary artery without angina pectoris; I10 Essential (primary) hypertension; E78.5 Hyperlipidemia, unspecified; F32.9 Major depressive disorder, single episode, unspecified; F17.200 Nicotine dependence, unspecified, uncomplicated; Z95.5 Presence of coronary angioplasty implant and graft

== ENCOUNTER → 2016-12-06 | Outpatient (REF) | payer MEDICARE ==
[~2016-12-06] MED LIST changes: +ASPI1TAB15 PO; -ASPI81TA7 PO; -ATOR1TAB18 PO; +ATOR80TA59 PO; +FERR1TAB8 PO; -FERR325T PO; +LEVA1TAB2 PO; -LEVA500T PO; -MELA5TAB14 PO; +MELA5TAB17 PO; +SENN1TAB10 PO; -SENN8.6T10 PO; -VITA-130 PO; +VITA500T PO
[2016-12-06 15:39] LABS: BASO % 0.4 % (0.0-1.0); EOS # 0.4 K/mm3 (0.0-0.50); EOS % 6.3 % (0.0-3.0); LARGE UNSTAINED CELL # 0.3 K/mm3 (0.0-0.4); LARGE UNSTAINED CELL % 4.6 % (0.0-4.0); LYMPH # 1.7 K/mm3 (1.5-4.5); LYMPH % 29.6 % (24.0-44.0); MEAN CORPUSCULAR HEMOGLOBIN 28.4 pg (27.0-33.0); MEAN CORPUSCULAR HGB CONC 31.5 g/dl (32.0-36.5); MEAN CORPUSCULAR VOLUME 90.2 fl (80.0-96.0); MONO # 0.5 K/mm3 (0.0-0.8); MONO % 8.9 % (0.0-5.0); NEUTROPHILS # 2.8 K/mm3 (1.8-7.7); NEUTROPHILS % 50.4 % (36.0-66.0); PLATELET COUNT, AUTOMATED 292 k/mm3 (150-450); RED CELL DISTRIBUTION WIDTH 16.5 % (11.5-14.5); WHITE BLOOD COUNT 5.6 K/mm3 (4.0-10.0)
[2016-12-06 15:45] LABS: ALBUMIN 3.7 GM/DL (3.2-5.2); ALBUMIN/GLOBULIN RATIO 1.12 (1.00-1.93); BILIRUBIN,TOTAL 0.3 MG/DL (0.2-1.0); CALCIUM LEVEL 8.9 MG/DL (8.8-10.2); CREATININE FOR GFR 1.33 MG/DL (0.70-1.30); GLOMERULAR FILTRATION RATE 57.1 (>49); POTASSIUM SERUM 4.6 MEQ/L (3.5-5.1)
== END ==
LOC: M SFHCSACK 10:27
PROVIDERS: ATTEND Physician Assistant
DX: I10 Essential (primary) hypertension (principal); E78.5 Hyperlipidemia, unspecified

== ENCOUNTER → 2017-06-23 | Outpatient (REF) | payer MEDICARE ==
[2017-06-23 14:28] LABS: BASO % 0.6 % (0.0-1.0); EOS # 0.3 10^3/uL (0.0-0.50); EOS % 4.5 % (0.0-3.0); HEMATOCRIT 43.9 % (42.0-52.0); HEMOGLOBIN 14.4 g/dl (13.5-17.5); IMMATURE GRANULOCYTE % 0.3 % (0-3.0); LYMPH # 1.4 10^3/uL (1.5-4.5); LYMPH % 21.8 % (24.0-44.0); MEAN CORPUSCULAR HEMOGLOBIN 31.6 pg (27.0-33.0); MEAN CORPUSCULAR HGB CONC 32.8 g/dl (32.0-36.5); MEAN CORPUSCULAR VOLUME 96.5 fl (80.0-96.0); MONO # 0.8 10^3/uL (0.0-0.8); MONO % 11.9 % (0.0-5.0); NEUTROPHILS # 3.9 10^3/uL (1.8-7.7); NEUTROPHILS % 60.9 % (36.0-66.0); PLATELET COUNT, AUTOMATED 242 10^3/uL (150-450); RED BLOOD COUNT 4.55 10^6/uL (4.30-6.10); RED CELL DISTRIBUTION WIDTH 14.6 % (11.5-14.5); WHITE BLOOD COUNT 6.4 10^3/uL (4.0-10.0)
[2017-06-23 14:44] LABS: ALBUMIN/GLOBULIN RATIO 1.21 (1.00-1.93); ALKALINE PHOSPHATASE 126 U/L (45-117); ALT/SGPT 31 U/L (12-78); ANION GAP 6 MEQ/L (8-16); AST/SGOT 24 U/L (7-37); BILIRUBIN,TOTAL 0.6 MG/DL (0.2-1.0); BLOOD UREA NITROGEN 12 MG/DL (7-18); CALCIUM LEVEL 9.3 MG/DL (8.8-10.2); CARBON DIOXIDE LEVEL 27 MEQ/L (21-32); CHLORIDE LEVEL 110 MEQ/L (98-107); CHOLESTEROL LEVEL 133 MG/DL (<200); CHOLESTEROL RISK RATIO 2.955 (<5); CREATININE FOR GFR 1.51 MG/DL (0.70-1.30); FERRITIN 32 NG/ML (26-388); GLOMERULAR FILTRATION RATE 49.2 (>49); GLUCOSE, FASTING 117 MG/DL (70-100); HDL CHOLESTEROL 45 MG/DL (>40); IRON (FE) 107 UG/DL (65-175); LDL CHOLESTEROL 62.4 MG/DL (<100); NON-HDL-C 88 MG/DL; PERCENT SATURATION 32.4 % (19.7-50.0); PSA SCREENING 1.11 NG/ML (< 4.0); SODIUM LEVEL 143 MEQ/L (136-145); TOTAL IRON BINDING CAPACITY 330 UG/DL (250-450); TOTAL PROTEIN 7.3 GM/DL (6.4-8.2); TRIGLYCERIDES LEVEL 128 MG/DL (<150)
== END ==
LOC: M SFHCSACK 10:34
DX: D64.9 Anemia, unspecified (principal); E78.5 Hyperlipidemia, unspecified; Z12.5 Encounter for screening for malignant neoplasm of prostate
CPT/HCPCS: 83550

== ENCOUNTER 2024-08-04 22:17 | Emergency (ER) | payer MEDICARE, OTHER ==
[~2024-08-04] VITALS: Ht 170.2 cm; Wt 47.7 kg
[~2024-08-04 22:17] MED LIST changes: +ASPI-546 PO; -ASPI1TAB15 PO; -DONE5TAB17 PO; +DONE5TAB64 PO; +GABA-1172 PO; -GABA-282 PO; -LAMO150T PO; +LAMO150T3 PO; -MELA5TAB17 PO; +MELA5TAB36 PO; +OMEP1CAP73 PO; -OMEP20CA3 PO; -RAMI1.25 PO; +RAMI1.258 PO; +RAMI2.5C42 PO; -RAMI25CA PO; +TIZA2CAP PO; -TIZA2CAP3 PO; +VITA-243 PO; -VITA500T PO
[2024-08-04 23:07] LABS: BASO % 0.6 % (0.0-1.0); EOS # 0.3 10^3/uL (0.0-0.5); HEMATOCRIT 35.3 % (42.0-52.0); HEMOGLOBIN 11.3 g/dl (13.5-17.5); LYMPH # 1.3 10^3/uL (1.5-5.0); LYMPH % 25.4 % (24.0-44.0); MEAN CORPUSCULAR HEMOGLOBIN 31.6 pg (27.0-33.0); MEAN CORPUSCULAR VOLUME 98.6 fl (80.0-96.0); MONO # 0.5 10^3/uL (0.0-0.8); MONO % 9.5 % (2.0-8.0); NEUTROPHILS % 58.3 % (36.0-66.0); PLATELET COUNT, AUTOMATED 137 10^3/uL (150-450); RED BLOOD COUNT 3.58 10^6/uL (4.30-6.10); WHITE BLOOD COUNT 5.2 10^3/uL (4.0-10.0)
[2024-08-04 23:27] LABS: BLOOD UREA NITROGEN 20 MG/DL (9-23); CALCIUM LEVEL 8.4 MG/DL (8.3-10.6); CARBON DIOXIDE LEVEL 28 MMOL/L (20-31); CHLORIDE LEVEL 103 MMOL/L (98-107); CK-MB VALUE MASS < 1.0 NG/ML (<3.6); CREATININE FOR GFR 0.75 MG/DL (0.70-1.30); GLOMERULAR FILTRATION RATE > 90.0 (>42); GLUCOSE, FASTING 119 MG/DL (74-106); POTASSIUM SERUM 3.9 MMOL/L (3.5-5.1); SODIUM LEVEL 140 MMOL/L (136-145)
[2024-08-04 23:28] LABS: CPK CREATINE PHOSPHOKINASE 30 U/L (46-171); MB/CK RELATIVE INDEX 3.33 (< OR =4)
[2024-08-05 01:04] LABS: CK-MB VALUE MASS < 1.0 NG/ML (<3.6)
[2024-08-05 01:05] LABS: CPK CREATINE PHOSPHOKINASE 27 U/L (46-171)
[2024-08-05] MEDS: KETOROLAC 30 MG/ML 1ML VIAL IV ONE (01:39)
[2024-08-05] MEDS: NS (Normal Saline) 0.9% 1,000 ML IV ONE (04:36)
[2024-08-05 07:15] VITALS: BP 96/55; TEMP 97.5; O2SAT 100
== END 2024-08-05 07:30 | disposition home or self-care (01) ==
LOC: M ED 22:17
DX: R07.89 Other chest pain (principal); R94.31 Abnormal electrocardiogram [ECG] [EKG]; I25.119 Atherosclerotic heart disease of native coronary artery with unspecified angina pectoris; K21.9 Gastro-esophageal reflux disease without esophagitis; I10 Essential (primary) hypertension; E78.5 Hyperlipidemia, unspecified; F17.210 Nicotine dependence, cigarettes, uncomplicated; Z79.1 Long term (current) use of non-steroidal anti-inflammatories (NSAID); Z79.899 Other long term (current) drug therapy
CPT/HCPCS: 71045; 80048; 82550; 82553; 84484; 85025; 85730; 86850; 86860; 86870; 86880; 86900; 86901; 86905; 86970; 86972; 86978; 93005; 93041; 94760; 96361; 96374; 99285; J1885

== ENCOUNTER 2024-11-05 12:39 | Emergency (ER) | payer OTHER ==
[~2024-11-05] VITALS: Ht 170.2 cm; Wt 49.4 kg
[2024-11-05 13:34] LABS: BASO # 0.0 10^3/uL (0.0-0.2); BASO % 0.2 % (0.0-1.0); EOS # 0.3 10^3/uL (0.0-0.5); EOS % 2.1 % (0.0-3.0); LYMPH # 2.8 10^3/uL (1.5-5.0); LYMPH % 23.1 % (24.0-44.0); MONO # 1.0 10^3/uL (0.0-0.8); MONO % 8.4 % (2.0-8.0); NEUTROPHILS # 7.9 10^3/uL (1.5-8.5); NEUTROPHILS % 65.6 % (36.0-66.0); PLATELET COUNT, AUTOMATED 327 10^3/uL (150-450)
[2024-11-05 13:46] LABS: INR 1.17
[2024-11-05] MEDS: PANTOPRAZOLE 40MG VIAL IV ONE (13:52)
[2024-11-05] MEDS: NS (Normal Saline) 0.9% 1,000 ML IV ONE (13:53)
[2024-11-05] MEDS ORDERED: EPINEPHrine 1 MG/10 ML SYRINGE 1.5IN ONE ×2 (14:00→15:39)
[2024-11-05 14:03] LABS: ALT/SGPT 24 U/L (7.0-40); AST/SGOT 43 U/L (<34); CALCIUM LEVEL 8.5 MG/DL (8.3-10.6); CARBON DIOXIDE LEVEL 21 MMOL/L (20-31); CHLORIDE LEVEL 108 MMOL/L (98-107); CREATININE FOR GFR 0.93 MG/DL (0.70-1.30); GLOMERULAR FILTRATION RATE 85.6 (>42); POTASSIUM SERUM 4.7 MMOL/L (3.5-5.1); SODIUM LEVEL 141 MMOL/L (136-145)
[2024-11-05] MEDS: VASOPRESSIN IN 0.9 % NACL 20 UNIT in IV 1 EA IV SCH (14:29)
[2024-11-05] MEDS: OCTREOTIDE ACETATE 100 MCG/ML VIAL **IV ADMINISTRATION ONLY IV ONE (14:29)
[2024-11-05] MEDS: NOREPINEPHRINE 4MG IN D5 250ML 4 MG in IV 1 EA IV SCH (14:47)
[2024-11-05] MEDS: PANTOPRAZOLE SODIUM 40 MG in D5W 50 ML IV SCH (14:52)
[2024-11-05 14:59] LABS: CK-MB VALUE MASS < 1.0 NG/ML (<3.6)
[2024-11-05 15:00] LABS: CPK CREATINE PHOSPHOKINASE 69 U/L (46-171)
[2024-11-05] MEDS: PHENYLEPHRINE 10MG/ML 1ML VIAL IV ONE (15:15)
[2024-11-05] MEDS: TRANEXAMIC ACID INJection 1,000 MG in NS 100 ML IV ONE (15:20)
[2024-11-05] MEDS ORDERED: PHENYLEPHRINE 10MG/ML 1ML VIAL As Ordered ONE (15:21)
[2024-11-05] MEDS: OCTREOTIDE ACETATE 1,200 MCG in NS 238.8 ML IV SCH (15:30)
[2024-11-05 15:35] VITALS: O2SAT 100
[2024-11-05] MEDS: MIDAZOLAM INJ 2 MG/2 ML VIAL IV STA (15:35)
[2024-11-05] MEDS ORDERED: MIDAZOLAM INJ 2 MG/2 ML VIAL As Ordered ONE (15:36)
[2024-11-05 15:39] VITALS: BP 58/36
[2024-11-05] MEDS ORDERED: CALCIUM CHLORIDE 10% 1 GM/10 ML SYR ONE (15:39)
== END 2024-11-05 17:41 | disposition expired ==
LOC: M ED 12:39
DX: I46.9 Cardiac arrest, cause unspecified (principal); K92.2 Gastrointestinal hemorrhage, unspecified; J84.10 Pulmonary fibrosis, unspecified; I47.10 Supraventricular tachycardia, unspecified; I45.10 Unspecified right bundle-branch block; E78.5 Hyperlipidemia, unspecified; I25.119 Atherosclerotic heart disease of native coronary artery with unspecified angina pectoris
CPT/HCPCS: 71045; 80053; 82248; 82550; 82553; 83690; 84484; 85025; 85610; 86850; 86870; 86900; 86901; 93005; 93041; 94760; 96365; 96375; 99291; 99292; J0168; J0618; J2354; J2371; J2470; J2598